=== PATIENT | male | born 1990 | race Caucasian/White ===

== ENCOUNTER 2016-11-05 13:34 | Inpatient (IN) | payer MEDICARE ==
[~2016-11-05] VITALS: Ht 172.7 cm; Wt 68.7 kg
[~2016-11-05 13:34] MED LIST: ACET325T14 PO; ALBU1.25 NEB; ALBU2.5V NEB; ALBU2.5V NPPB; AZIT250T89 PO; BISA10SU2 PR; BISA10SU65 PR; BUPR-173 PO; BUPR100T8 PO; DEXT1TAB7 PO; DEXT50VI2 IVPush; DIPH25CA61 PO; DIPH50VI4 IVPush; DORN1SOL INH; GABA300C10 PO; GABA600T2 PO; GUAI200T3 PO; GUAI400T26 PO; Gabapentin PO; HUMALOG; HYDR-3241 PO; HYDR2VIA2 IV; INSU100C SQ-INSULIN; INSU100I28 SQ-INSULIN; INSU100V5 SQ-INSULIN; INSU100V8 SQ; KETO30SY IM; LIPA1CAP17 PO; LORA0.5T PO; MERO1VIA15 IM/IV; MULT-512 PO; MULT-6 PO; OMEP-110 PO; OXYC1TAB8 PO; PHYT5TAB2 PO; PIPE4.5V6 IVPB; POLY17PO5 PO; TEMA15CA6 PO; [UNRECOGNIZED DRUG - CODE] IVPB
[2016-11-05 18:15] VITALS: BP 151/96
[2016-11-05] MEDS ORDERED: DIPHENHYDRAMINE 50 MG/ML, 1ML ONE (21:29)
[2016-11-05] MEDS ORDERED: HYDROmorphone 1 MG/ML, 1ML ONE (21:29)
[2016-11-05] MEDS: INSULIN REGULAR 100 UNITS/ML, 3ML VIAL SQ-INSULIN SCH (21:30)
[2016-11-05] MEDS: HYDROmorphone 2 MG/ML, 1ML IV PRN ×2 (21:49→22:07)
[2016-11-05] MEDS: DIPHENHYDRAMINE 50 MG/ML, 1ML IVPush PRN (21:49)
[2016-11-05] MEDS: GABAPENTIN 300 MG CAPSULE PO SCH (22:05)
[2016-11-05] MEDS: GUAIFENESIN 200 MG TABLET PO SCH (22:05)
[2016-11-05] MEDS: PIPERACILLIN/TAZO/PMX 4.5GM 100 ML IV SCH (22:54)
[2016-11-05] MEDS: CIPROFLOXACIN/PMX 400MG/200ML 200 ML IV SCH (23:45)
[2016-11-05] MEDS: ALBUTEROL SULFATE 2.5 MG/3 ML NPPB SCH (23:45)
[2016-11-06] MEDS ORDERED: ALBUTEROL/IPRATROPIUM 2.5MG/0.5MG, 3 ML NPPB PRN (01:00)
[2016-11-06 03:21] VITALS: BP 150/84
[2016-11-06] MEDS: ALBUTEROL SULFATE 2.5 MG/3 ML NPPB SCH ×5 (03:29→20:50)
[2016-11-06] MEDS: DORNASE ALFA 1 MG/ML INH SCH ×4 (03:29→21:09)
[2016-11-06] MEDS: GABAPENTIN 300 MG CAPSULE PO SCH ×4 (06:00→20:14)
[2016-11-06] MEDS: GUAIFENESIN 200 MG TABLET PO SCH ×4 (06:00→20:14)
[2016-11-06 06:19] LABS: BLOOD UREA NITROGEN 17 mg/dL (7-18)
[2016-11-06 06:20] LABS: ASPARTATE AMINO TRANSFERASE 18 U/L (15-37)
[2016-11-06] MEDS: PANCRELIPASE 24,000 CAPSULE.DR PO SCH ×3 (06:40→17:32)
[2016-11-06] MEDS: PIPERACILLIN/TAZO/PMX 4.5GM 100 ML IV SCH ×3 (06:40→23:14)
[2016-11-06 06:42] VITALS: BP 138/86
[2016-11-06] MEDS: INSULIN REGULAR 100 UNITS/ML, 3ML VIAL SQ-INSULIN SCH ×4 (07:00→21:00)
[2016-11-06] MEDS ORDERED: ALBUTEROL/IPRATROPIUM 2.5MG/0.5MG, 3 ML NPPB SCH (07:00)
[2016-11-06] MEDS: DIPHENHYDRAMINE 50 MG/ML, 1ML IVPush PRN ×4 (07:23→20:00)
[2016-11-06] MEDS: HYDROmorphone 2 MG/ML, 1ML IV PRN ×4 (07:23→20:11)
[2016-11-06] MEDS: PHYTONADIONE 10 MG/ML, 1ML IM SCH ×2 (09:00→09:05)
[2016-11-06] MEDS: BUPROPION SR 100 MG TABLET PO SCH (09:05)
[2016-11-06] MEDS: PANTOPROZOLE 40MG TABLET PO SCH (09:05)
[2016-11-06] MEDS ORDERED: SODIUM CHLORIDE 0.9% 1,000 ML IV SCH (10:30)
[2016-11-06] MEDS: CIPROFLOXACIN/PMX 400MG/200ML 200 ML IV SCH (11:13)
[2016-11-06] MEDS ORDERED: DIPHENHYDRAMINE 50 MG/ML, 1ML ONE (11:44)
[2016-11-06 12:58] VITALS: BP 131/85
[2016-11-06] MEDS ORDERED: GADOBUTROL 7.5 MMOL/7.5 ML PFS ONE (16:27)
[2016-11-06 18:32] VITALS: BP 151/93
[2016-11-06] MEDS: INSULIN DETEMIR 100 UNITS/ML, PEN SQ-INSULIN SCH (20:23)
[2016-11-06] MEDS: TOBRAMYCIN NPPB SCH (21:00)
[2016-11-06] MEDS: SODIUM CHLORIDE NPPB SCH (21:00)
[2016-11-07] MEDS: CIPROFLOXACIN/PMX 400MG/200ML 200 ML IV SCH ×2 (00:09→11:34)
[2016-11-07] MEDS: DIPHENHYDRAMINE 50 MG/ML, 1ML IVPush PRN ×6 (00:09→21:42)
[2016-11-07] MEDS: HYDROmorphone 2 MG/ML, 1ML IV PRN ×6 (00:40→21:58)
[2016-11-07 01:30] VITALS: BP 147/69
[2016-11-07] MEDS: GABAPENTIN 300 MG CAPSULE PO SCH ×4 (06:38→21:42)
[2016-11-07] MEDS: GUAIFENESIN 200 MG TABLET PO SCH ×4 (06:39→21:42)
[2016-11-07] MEDS: PIPERACILLIN/TAZO/PMX 4.5GM 100 ML IV SCH ×3 (06:40→23:19)
[2016-11-07 06:52] LABS: BLOOD UREA NITROGEN 18 mg/dL (7-18)
[2016-11-07 06:59] VITALS: BP 128/76
[2016-11-07] MEDS: PANCRELIPASE 24,000 CAPSULE.DR PO SCH ×3 (07:00→16:06)
[2016-11-07] MEDS: INSULIN REGULAR 100 UNITS/ML, 3ML VIAL SQ-INSULIN SCH ×4 (07:30→21:00)
[2016-11-07] MEDS: ALBUTEROL SULFATE 2.5 MG/3 ML NPPB SCH ×4 (08:30→20:50)
[2016-11-07] MEDS: SODIUM CHLORIDE NPPB SCH ×2 (08:42→20:55)
[2016-11-07] MEDS: TOBRAMYCIN NPPB SCH ×2 (08:42→20:55)
[2016-11-07] MEDS: DORNASE ALFA 1 MG/ML INH SCH ×2 (08:42→21:00)
[2016-11-07] MEDS: PANTOPROZOLE 40MG TABLET PO SCH (09:16)
[2016-11-07] MEDS: PHYTONADIONE 10 MG/ML, 1ML IM SCH (09:16)
[2016-11-07] MEDS: BUPROPION SR 100 MG TABLET PO SCH (09:16)
[2016-11-07] MEDS: INSULIN DETEMIR 100 UNITS/ML, PEN SQ-INSULIN SCH (09:18)
[2016-11-07 13:16] VITALS: BP 129/94
[2016-11-07 18:40] VITALS: BP 129/77
[2016-11-08 02:03] VITALS: BP 142/92
[2016-11-08] MEDS: HYDROmorphone 2 MG/ML, 1ML IV PRN ×6 (02:12→22:43)
[2016-11-08] MEDS: GUAIFENESIN 200 MG TABLET PO SCH ×4 (05:45→22:25)
[2016-11-08] MEDS: DIPHENHYDRAMINE 50 MG/ML, 1ML IVPush PRN ×5 (05:45→22:22)
[2016-11-08] MEDS: GABAPENTIN 300 MG CAPSULE PO SCH ×4 (05:45→22:25)
[2016-11-08] MEDS: PIPERACILLIN/TAZO/PMX 4.5GM 100 ML IV SCH ×3 (06:40→22:39)
[2016-11-08] MEDS: PANCRELIPASE 24,000 CAPSULE.DR PO SCH ×3 (06:41→17:13)
[2016-11-08] MEDS: ALBUTEROL SULFATE 2.5 MG/3 ML NPPB SCH ×4 (06:42→20:00)
[2016-11-08 07:04] VITALS: BP 131/87
[2016-11-08] MEDS: BUPROPION SR 100 MG TABLET PO SCH (08:29)
[2016-11-08] MEDS: PANTOPROZOLE 40MG TABLET PO SCH (08:29)
[2016-11-08] MEDS: INSULIN DETEMIR 100 UNITS/ML, PEN SQ-INSULIN SCH (08:30)
[2016-11-08] MEDS: INSULIN REGULAR 100 UNITS/ML, 3ML VIAL SQ-INSULIN SCH ×4 (08:30→21:00)
[2016-11-08] MEDS: PHYTONADIONE 10 MG/ML, 1ML IM SCH (08:31)
[2016-11-08] MEDS: SODIUM CHLORIDE NPPB SCH ×2 (09:00→20:40)
[2016-11-08] MEDS: DORNASE ALFA 1 MG/ML INH SCH ×2 (09:00→20:40)
[2016-11-08] MEDS: TOBRAMYCIN NPPB SCH ×2 (09:00→20:40)
[2016-11-08] MEDS: CIPROFLOXACIN/PMX 400MG/200ML 200 ML IV SCH ×2 (11:41)
[2016-11-08 15:09] VITALS: BP 122/87
[2016-11-08 21:12] VITALS: BP 123/82
[2016-11-09] MEDS: CIPROFLOXACIN/PMX 400MG/200ML 200 ML IV SCH ×2 (00:04→11:47)
[2016-11-09 02:14] VITALS: BP 150/99
[2016-11-09] MEDS: DIPHENHYDRAMINE 50 MG/ML, 1ML IVPush PRN ×5 (02:22→20:38)
[2016-11-09] MEDS: HYDROmorphone 2 MG/ML, 1ML IV PRN ×6 (03:04→20:38)
[2016-11-09 05:20] LABS: BLOOD UREA NITROGEN 16 mg/dL (7-18)
[2016-11-09] MEDS: GUAIFENESIN 200 MG TABLET PO SCH ×4 (06:05→20:38)
[2016-11-09] MEDS: GABAPENTIN 300 MG CAPSULE PO SCH ×4 (06:05→20:38)
[2016-11-09] MEDS: ALBUTEROL SULFATE 2.5 MG/3 ML NPPB SCH ×4 (06:32→21:15)
[2016-11-09] MEDS: PIPERACILLIN/TAZO/PMX 4.5GM 100 ML IV SCH ×3 (06:41→23:20)
[2016-11-09] MEDS: PANCRELIPASE 24,000 CAPSULE.DR PO SCH ×3 (06:42→15:42)
[2016-11-09] MEDS: INSULIN REGULAR 100 UNITS/ML, 3ML VIAL SQ-INSULIN SCH ×4 (07:00→20:52)
[2016-11-09 07:27] VITALS: BP 130/92
[2016-11-09] MEDS: PHYTONADIONE 10 MG/ML, 1ML IM SCH (08:47)
[2016-11-09] MEDS: PANTOPROZOLE 40MG TABLET PO SCH (08:47)
[2016-11-09] MEDS: BUPROPION SR 100 MG TABLET PO SCH (08:47)
[2016-11-09] MEDS: INSULIN DETEMIR 100 UNITS/ML, PEN SQ-INSULIN SCH (08:48)
[2016-11-09] MEDS: DORNASE ALFA 1 MG/ML INH SCH ×2 (09:00→21:00)
[2016-11-09] MEDS: SODIUM CHLORIDE NPPB SCH ×2 (09:00→21:00)
[2016-11-09] MEDS: TOBRAMYCIN NPPB SCH ×2 (09:00→21:00)
[2016-11-09 13:28] VITALS: BP 148/98
[2016-11-09 19:39] VITALS: BP 133/87
[2016-11-10] MEDS: CIPROFLOXACIN/PMX 400MG/200ML 200 ML IV SCH ×2 (00:27→11:59)
[2016-11-10] MEDS: HYDROmorphone 2 MG/ML, 1ML IV PRN ×5 (00:35→20:44)
[2016-11-10] MEDS: DIPHENHYDRAMINE 50 MG/ML, 1ML IVPush PRN ×5 (00:35→20:44)
[2016-11-10 01:15] VITALS: BP 131/94
[2016-11-10] MEDS: LORazepam 1MG TABLET PO PRN ×2 (01:26→23:59)
[2016-11-10] MEDS: GUAIFENESIN 200 MG TABLET PO SCH ×4 (06:56→21:06)
[2016-11-10] MEDS: GABAPENTIN 300 MG CAPSULE PO SCH ×4 (06:56→21:06)
[2016-11-10] MEDS: ALBUTEROL SULFATE 2.5 MG/3 ML NPPB SCH ×4 (07:20→21:00)
[2016-11-10] MEDS: SODIUM CHLORIDE NPPB SCH ×2 (07:31→21:00)
[2016-11-10] MEDS: TOBRAMYCIN NPPB SCH ×2 (07:31→21:00)
[2016-11-10] MEDS: DORNASE ALFA 1 MG/ML INH SCH ×2 (07:49→21:00)
[2016-11-10 08:00] VITALS: BP 137/92
[2016-11-10] MEDS: PANTOPROZOLE 40MG TABLET PO SCH (08:16)
[2016-11-10] MEDS: PIPERACILLIN/TAZO/PMX 4.5GM 100 ML IV SCH ×3 (08:16→22:58)
[2016-11-10] MEDS: BUPROPION SR 100 MG TABLET PO SCH (08:17)
[2016-11-10] MEDS: INSULIN REGULAR 100 UNITS/ML, 3ML VIAL SQ-INSULIN SCH ×4 (08:19→21:18)
[2016-11-10] MEDS: INSULIN DETEMIR 100 UNITS/ML, PEN SQ-INSULIN SCH (08:19)
[2016-11-10] MEDS: PHYTONADIONE 10 MG/ML, 1ML IM SCH (08:20)
[2016-11-10] MEDS: PANCRELIPASE 24,000 CAPSULE.DR PO SCH ×3 (08:22→16:00)
[2016-11-10 13:38] VITALS: BP 130/95
[2016-11-10] MEDS: HYDROcodone/APAP 10/325 MG TABLET PO PRN (13:45)
[2016-11-10 19:57] VITALS: BP 123/67
[2016-11-10 21:51] VITALS: BP 138/84
[2016-11-11] MEDS: DIPHENHYDRAMINE 50 MG/ML, 1ML IVPush PRN ×6 (00:54→23:16)
[2016-11-11] MEDS: HYDROmorphone 2 MG/ML, 1ML IV PRN ×6 (00:54→23:10)
[2016-11-11 02:52] VITALS: BP 133/94
[2016-11-11] MEDS: PANCRELIPASE 24,000 CAPSULE.DR PO SCH ×3 (07:00→16:00)
[2016-11-11] MEDS: GUAIFENESIN 200 MG TABLET PO SCH ×4 (07:10→21:04)
[2016-11-11] MEDS: PIPERACILLIN/TAZO/PMX 4.5GM 100 ML IV SCH ×3 (07:11→23:17)
[2016-11-11] MEDS: GABAPENTIN 300 MG CAPSULE PO SCH ×4 (07:11→21:03)
[2016-11-11] MEDS: ALBUTEROL SULFATE 2.5 MG/3 ML NPPB SCH ×4 (07:30→22:55)
[2016-11-11 08:13] VITALS: BP 132/90
[2016-11-11] MEDS: PANTOPROZOLE 40MG TABLET PO SCH (08:20)
[2016-11-11] MEDS: PHYTONADIONE 10 MG/ML, 1ML IM SCH (08:21)
[2016-11-11] MEDS: BUPROPION SR 100 MG TABLET PO SCH (08:21)
[2016-11-11] MEDS: INSULIN DETEMIR 100 UNITS/ML, PEN SQ-INSULIN SCH (08:22)
[2016-11-11] MEDS: INSULIN REGULAR 100 UNITS/ML, 3ML VIAL SQ-INSULIN SCH ×4 (08:22→21:17)
[2016-11-11] MEDS: TOBRAMYCIN NPPB SCH ×2 (09:16→23:05)
[2016-11-11] MEDS: SODIUM CHLORIDE NPPB SCH ×2 (09:16→23:05)
[2016-11-11] MEDS: HYDROcodone/APAP 10/325 MG TABLET PO PRN ×2 (09:40→16:56)
[2016-11-11] MEDS: CIPROFLOXACIN/PMX 400MG/200ML 200 ML IV SCH ×2 (11:17)
[2016-11-11] MEDS: DORNASE ALFA 1 MG/ML INH SCH ×2 (12:23→23:20)
[2016-11-11 15:06] VITALS: BP 145/95
[2016-11-11] MEDS ORDERED: DOCUSATE 50 MG/5 ML, 10ML UDC PO PRN (19:30)
[2016-11-11 19:49] VITALS: BP 130/87
[2016-11-12] MEDS: CIPROFLOXACIN/PMX 400MG/200ML 200 ML IV SCH ×2 (00:35→12:27)
[2016-11-12] MEDS: LORazepam 1MG TABLET PO PRN ×2 (00:36→17:00)
[2016-11-12 02:19] VITALS: BP 127/86
[2016-11-12] MEDS: DIPHENHYDRAMINE 50 MG/ML, 1ML IVPush PRN ×5 (03:14→20:01)
[2016-11-12] MEDS: HYDROmorphone 2 MG/ML, 1ML IV PRN ×5 (03:15→20:01)
[2016-11-12] MEDS: GABAPENTIN 300 MG CAPSULE PO SCH ×4 (06:00→21:21)
[2016-11-12] MEDS: GUAIFENESIN 200 MG TABLET PO SCH ×4 (06:00→21:21)
[2016-11-12 06:13] LABS: ASPARTATE AMINO TRANSFERASE 14 U/L (15-37); BLOOD UREA NITROGEN 22 mg/dL (7-18)
[2016-11-12] MEDS: INSULIN REGULAR 100 UNITS/ML, 3ML VIAL SQ-INSULIN SCH ×4 (07:00→21:21)
[2016-11-12 07:02] VITALS: BP 127/64
[2016-11-12] MEDS: ALBUTEROL SULFATE 2.5 MG/3 ML NPPB SCH ×4 (07:40→22:00)
[2016-11-12] MEDS: BUPROPION SR 100 MG TABLET PO SCH (08:08)
[2016-11-12] MEDS: PIPERACILLIN/TAZO/PMX 4.5GM 100 ML IV SCH ×3 (08:09→22:58)
[2016-11-12] MEDS: PANCRELIPASE 24,000 CAPSULE.DR PO SCH ×3 (08:09→15:41)
[2016-11-12] MEDS: PHYTONADIONE 10 MG/ML, 1ML IM SCH (08:10)
[2016-11-12] MEDS: PANTOPROZOLE 40MG TABLET PO SCH (08:14)
[2016-11-12] MEDS: INSULIN DETEMIR 100 UNITS/ML, PEN SQ-INSULIN SCH (08:25)
[2016-11-12] MEDS: LACTATED RINGERS 1,000 ML IV SCH ×2 (08:26→21:21)
[2016-11-12] MEDS: HYDROcodone/APAP 10/325 MG TABLET PO PRN (10:42)
[2016-11-12] MEDS: POLYETHYLENE GLYCOL 17 GM PACKET PO SCH (10:42)
[2016-11-12] MEDS: SODIUM CHLORIDE NPPB SCH ×2 (10:50→22:10)
[2016-11-12] MEDS: TOBRAMYCIN NPPB SCH ×2 (10:50→22:10)
[2016-11-12] MEDS: DORNASE ALFA 1 MG/ML INH SCH ×2 (12:10→23:30)
[2016-11-12 14:35] VITALS: BP 148/73
[2016-11-12 15:00] VITALS: BP 150/100
[2016-11-12 17:03] VITALS: BP 128/91
[2016-11-12 20:04] VITALS: BP 148/91
[2016-11-13] MEDS: HYDROmorphone 2 MG/ML, 1ML IV PRN ×6 (00:09→20:25)
[2016-11-13] MEDS: CIPROFLOXACIN/PMX 400MG/200ML 200 ML IV SCH ×2 (00:09→12:53)
[2016-11-13] MEDS: DIPHENHYDRAMINE 50 MG/ML, 1ML IVPush PRN ×5 (00:09→20:26)
[2016-11-13 02:30] VITALS: BP 142/95
[2016-11-13] MEDS: GUAIFENESIN 200 MG TABLET PO SCH ×4 (05:52→20:25)
[2016-11-13] MEDS: GABAPENTIN 300 MG CAPSULE PO SCH ×4 (05:52→20:25)
[2016-11-13 06:29] LABS: BLOOD UREA NITROGEN 19 mg/dL (7-18)
[2016-11-13] MEDS: PIPERACILLIN/TAZO/PMX 4.5GM 100 ML IV SCH ×3 (06:46→22:54)
[2016-11-13] MEDS: PANCRELIPASE 24,000 CAPSULE.DR PO SCH ×3 (06:47→16:00)
[2016-11-13 07:12] VITALS: BP 128/81
[2016-11-13] MEDS: PANTOPROZOLE 40MG TABLET PO SCH (07:30)
[2016-11-13] MEDS: ALBUTEROL SULFATE 2.5 MG/3 ML NPPB SCH ×4 (08:05→22:00)
[2016-11-13] MEDS: TOBRAMYCIN NPPB SCH ×2 (08:15→22:10)
[2016-11-13] MEDS: SODIUM CHLORIDE NPPB SCH ×2 (08:15→22:10)
[2016-11-13] MEDS: INSULIN REGULAR 100 UNITS/ML, 3ML VIAL SQ-INSULIN SCH ×5 (08:47→20:33)
[2016-11-13] MEDS: BUPROPION SR 100 MG TABLET PO SCH (09:00)
[2016-11-13] MEDS ORDERED: HYDROmorphone 2 MG/ML, 1ML IVPush PRN (09:00)
[2016-11-13] MEDS: PHYTONADIONE 10 MG/ML, 1ML IM SCH (09:00)
[2016-11-13] MEDS ORDERED: DIPHENHYDRAMINE 50 MG/ML, 1ML IVPush ONE (09:30)
[2016-11-13] MEDS ORDERED: methylPREDNISolone SOD SUCC 125 MG/2 ML IVPush ONE ×2 (09:30→10:00)
[2016-11-13] MEDS ORDERED: methylPREDNISolone SOD SUCC 125 MG/2 ML IVPush SCH (10:00)
[2016-11-13] MEDS ORDERED: GADOBUTROL 7.5 MMOL/7.5 ML PFS ONE (10:37)
[2016-11-13] MEDS ORDERED: OXYMETAZOLINE NASAL SPRAY 0.05%, 15ML ONE (10:52)
[2016-11-13] MEDS ORDERED: BACITRACIN 50,000 UNIT ONE (10:53)
[2016-11-13] MEDS ORDERED: FLUORESCEIN OPHTHALMIC 1 MG STRIP ONE (10:53)
[2016-11-13] MEDS ORDERED: LIDOCAINE/PF 1%-EPI 1:200K, 30ML ONE ×2 (10:53)
[2016-11-13] MEDS ORDERED: EPINEPHRINE TOPICAL SOLN 1 MG/ML, 30ML ONE (10:53)
[2016-11-13] MEDS ORDERED: BACITRACIN OINT 500U/GM, 15 GM ONE (10:53)
[2016-11-13] MEDS: DORNASE ALFA 1 MG/ML INH SCH ×2 (10:55→20:30)
[2016-11-13] MEDS: ALBUTEROL SULFATE 2.5 MG/3 ML NPPB PRN (12:35)
[2016-11-13] MEDS: POLYETHYLENE GLYCOL 17 GM PACKET PO SCH (12:57)
[2016-11-13] MEDS: INSULIN DETEMIR 100 UNITS/ML, PEN SQ-INSULIN SCH (13:09)
[2016-11-13 14:52] VITALS: BP 121/73
[2016-11-13] MEDS: LACTATED RINGERS 1,000 ML IV SCH (15:30)
[2016-11-13] MEDS: LORazepam 1MG TABLET PO PRN (15:30)
[2016-11-13 20:52] VITALS: BP 135/80
[2016-11-14] MEDS: CIPROFLOXACIN/PMX 400MG/200ML 200 ML IV SCH ×2 (00:13→12:16)
[2016-11-14] MEDS: HYDROmorphone 2 MG/ML, 1ML IV PRN ×6 (00:14→20:22)
[2016-11-14] MEDS: DIPHENHYDRAMINE 50 MG/ML, 1ML IVPush PRN ×6 (00:14→20:22)
[2016-11-14 02:15] VITALS: BP 148/84
[2016-11-14] MEDS: LACTATED RINGERS 1,000 ML IV SCH (02:25)
[2016-11-14] MEDS: LORazepam 1MG TABLET PO PRN ×2 (02:25→21:57)
[2016-11-14] MEDS: GABAPENTIN 300 MG CAPSULE PO SCH ×4 (05:22→21:25)
[2016-11-14] MEDS: GUAIFENESIN 200 MG TABLET PO SCH ×4 (05:22→21:25)
[2016-11-14 06:42] LABS: BLOOD UREA NITROGEN 32 mg/dL (7-18)
[2016-11-14] MEDS: PIPERACILLIN/TAZO/PMX 4.5GM 100 ML IV SCH ×3 (06:47→23:07)
[2016-11-14] MEDS: PANCRELIPASE 24,000 CAPSULE.DR PO SCH ×3 (06:48→16:16)
[2016-11-14] MEDS: PANTOPROZOLE 40MG TABLET PO SCH (07:31)
[2016-11-14] MEDS: ALBUTEROL SULFATE 2.5 MG/3 ML NPPB SCH ×4 (07:43→20:47)
[2016-11-14] MEDS: TOBRAMYCIN NPPB SCH ×2 (07:57→20:56)
[2016-11-14] MEDS: SODIUM CHLORIDE NPPB SCH ×2 (07:57→20:56)
[2016-11-14] MEDS: DORNASE ALFA 1 MG/ML INH SCH ×2 (08:10→20:57)
[2016-11-14] MEDS: PHYTONADIONE 10 MG/ML, 1ML IM SCH (09:00)
[2016-11-14 09:25] VITALS: BP 123/75
[2016-11-14] MEDS: INSULIN DETEMIR 100 UNITS/ML, PEN SQ-INSULIN SCH (10:11)
[2016-11-14] MEDS: POLYETHYLENE GLYCOL 17 GM PACKET PO SCH (10:11)
[2016-11-14] MEDS: INSULIN REGULAR 100 UNITS/ML, 3ML VIAL SQ-INSULIN SCH ×4 (10:11→21:00)
[2016-11-14] MEDS: BUPROPION SR 100 MG TABLET PO SCH (10:12)
[2016-11-14] MEDS: HYDROcodone/APAP 10/325 MG TABLET PO PRN ×3 (10:22→21:52)
[2016-11-14 14:38] VITALS: BP 137/80
[2016-11-14] MEDS: SODIUM CHLORIDE 0.9% 1,000 ML IV SCH (15:49)
[2016-11-14 20:28] VITALS: BP 149/90
[2016-11-15] MEDS: DIPHENHYDRAMINE 50 MG/ML, 1ML IVPush PRN ×5 (00:41→20:08)
[2016-11-15] MEDS: HYDROmorphone 2 MG/ML, 1ML IV PRN ×7 (00:41→23:13)
[2016-11-15] MEDS: CIPROFLOXACIN/PMX 400MG/200ML 200 ML IV SCH ×3 (00:41→23:31)
[2016-11-15 02:14] VITALS: BP 116/72
[2016-11-15] MEDS: HYDROcodone/APAP 10/325 MG TABLET PO PRN ×2 (03:55→16:11)
[2016-11-15] MEDS: SODIUM CHLORIDE 0.9% 1,000 ML IV SCH ×2 (04:18→15:04)
[2016-11-15 04:40] LABS: BLOOD UREA NITROGEN 25 mg/dL (7-18)
[2016-11-15] MEDS: PIPERACILLIN/TAZO/PMX 4.5GM 100 ML IV SCH ×3 (06:30→22:54)
[2016-11-15] MEDS: GUAIFENESIN 200 MG TABLET PO SCH ×4 (06:30→20:09)
[2016-11-15] MEDS: PANCRELIPASE 24,000 CAPSULE.DR PO SCH ×3 (06:30→16:00)
[2016-11-15] MEDS: GABAPENTIN 300 MG CAPSULE PO SCH ×4 (06:30→20:09)
[2016-11-15] MEDS: PANTOPROZOLE 40MG TABLET PO SCH (07:43)
[2016-11-15] MEDS: PHYTONADIONE 10 MG/ML, 1ML IM SCH (07:43)
[2016-11-15] MEDS: BUPROPION SR 100 MG TABLET PO SCH (07:43)
[2016-11-15] MEDS: POLYETHYLENE GLYCOL 17 GM PACKET PO SCH (07:43)
[2016-11-15] MEDS: INSULIN REGULAR 100 UNITS/ML, 3ML VIAL SQ-INSULIN SCH ×4 (07:44→20:21)
[2016-11-15] MEDS: INSULIN DETEMIR 100 UNITS/ML, PEN SQ-INSULIN SCH (07:44)
[2016-11-15] MEDS: ALBUTEROL SULFATE 2.5 MG/3 ML NPPB SCH ×4 (07:52→20:10)
[2016-11-15] MEDS: TOBRAMYCIN NPPB SCH ×2 (08:06→20:39)
[2016-11-15] MEDS: SODIUM CHLORIDE NPPB SCH ×2 (08:06→20:39)
[2016-11-15] MEDS: DORNASE ALFA 1 MG/ML INH SCH ×2 (08:17→20:32)
[2016-11-15] MEDS: LORazepam 1MG TABLET PO PRN (10:31)
[2016-11-15 10:49] VITALS: BP 147/97
[2016-11-15 13:05] VITALS: BP_SYST 128; BP_SYST 133; BP_DIAS 74; BP_DIAS 99
[2016-11-15 19:55] VITALS: BP 168/102
[2016-11-16] MEDS: DIPHENHYDRAMINE 50 MG/ML, 1ML IVPush PRN ×5 (00:12→21:16)
[2016-11-16] MEDS: SODIUM CHLORIDE 0.9% 1,000 ML IV SCH ×2 (00:13→10:57)
[2016-11-16] MEDS: LORazepam 1MG TABLET PO PRN ×2 (00:19→10:44)
[2016-11-16] MEDS: HYDROmorphone 2 MG/ML, 1ML IV PRN ×7 (02:18→21:16)
[2016-11-16 02:20] VITALS: BP 165/103
[2016-11-16] MEDS: GABAPENTIN 300 MG CAPSULE PO SCH ×4 (05:14→21:23)
[2016-11-16] MEDS: GUAIFENESIN 200 MG TABLET PO SCH ×4 (05:14→21:24)
[2016-11-16] MEDS: PIPERACILLIN/TAZO/PMX 4.5GM 100 ML IV SCH ×3 (05:18→22:48)
[2016-11-16 06:05] LABS: BLOOD UREA NITROGEN 26 mg/dL (7-18)
[2016-11-16] MEDS: PANCRELIPASE 24,000 CAPSULE.DR PO SCH ×3 (06:31→16:18)
[2016-11-16] MEDS: ALBUTEROL SULFATE 2.5 MG/3 ML NPPB SCH ×4 (06:35→20:00)
[2016-11-16] MEDS: SODIUM CHLORIDE NPPB SCH ×2 (06:57→20:51)
[2016-11-16] MEDS: TOBRAMYCIN NPPB SCH ×2 (06:57→20:51)
[2016-11-16] MEDS: DORNASE ALFA 1 MG/ML INH SCH ×2 (07:00→20:41)
[2016-11-16 07:11] VITALS: BP 135/91
[2016-11-16] MEDS: PANTOPROZOLE 40MG TABLET PO SCH (07:45)
[2016-11-16] MEDS: POLYETHYLENE GLYCOL 17 GM PACKET PO SCH (07:46)
[2016-11-16] MEDS: BUPROPION SR 100 MG TABLET PO SCH (07:46)
[2016-11-16] MEDS: PHYTONADIONE 10 MG/ML, 1ML IM SCH (07:46)
[2016-11-16] MEDS: INSULIN REGULAR 100 UNITS/ML, 3ML VIAL SQ-INSULIN SCH ×4 (07:47→22:45)
[2016-11-16] MEDS: INSULIN DETEMIR 100 UNITS/ML, PEN SQ-INSULIN SCH (07:48)
[2016-11-16] MEDS: CIPROFLOXACIN/PMX 400MG/200ML 200 ML IV SCH (11:29)
[2016-11-16 14:05] VITALS: BP 136/94
[2016-11-16 18:37] VITALS: BP 145/92
[2016-11-16] MEDS: HYDROcodone/APAP 10/325 MG TABLET PO PRN (19:59)
[2016-11-17] MEDS: SODIUM CHLORIDE 0.9% 1,000 ML IV SCH ×3 (00:08→23:59)
[2016-11-17] MEDS: CIPROFLOXACIN/PMX 400MG/200ML 200 ML IV SCH ×3 (00:08→23:53)
[2016-11-17] MEDS: HYDROmorphone 2 MG/ML, 1ML IV PRN ×7 (00:09→22:33)
[2016-11-17] MEDS: DIPHENHYDRAMINE 50 MG/ML, 1ML IVPush PRN ×5 (00:09→19:23)
[2016-11-17] MEDS: LORazepam 1MG TABLET PO PRN ×3 (00:53→23:53)
[2016-11-17 01:32] VITALS: BP 137/91
[2016-11-17] MEDS: HYDROcodone/APAP 10/325 MG TABLET PO PRN ×5 (04:54→21:57)
[2016-11-17 05:32] LABS: BLOOD UREA NITROGEN 25 mg/dL (7-18)
[2016-11-17] MEDS: GABAPENTIN 300 MG CAPSULE PO SCH ×4 (06:21→20:34)
[2016-11-17] MEDS: GUAIFENESIN 200 MG TABLET PO SCH ×4 (06:21→20:34)
[2016-11-17] MEDS: PANCRELIPASE 24,000 CAPSULE.DR PO SCH ×3 (06:21→16:34)
[2016-11-17] MEDS: PIPERACILLIN/TAZO/PMX 4.5GM 100 ML IV SCH ×3 (06:22→23:03)
[2016-11-17] MEDS: ALBUTEROL SULFATE 2.5 MG/3 ML NPPB SCH ×4 (07:00→20:00)
[2016-11-17 08:00] VITALS: BP 150/96
[2016-11-17] MEDS: PANTOPROZOLE 40MG TABLET PO SCH (08:03)
[2016-11-17] MEDS: INSULIN REGULAR 100 UNITS/ML, 3ML VIAL SQ-INSULIN SCH ×4 (08:03→20:40)
[2016-11-17] MEDS: TOBRAMYCIN NPPB SCH ×2 (09:00→21:00)
[2016-11-17] MEDS: DORNASE ALFA 1 MG/ML INH SCH ×2 (09:00→21:00)
[2016-11-17] MEDS: SODIUM CHLORIDE NPPB SCH ×2 (09:00→21:00)
[2016-11-17] MEDS: POLYETHYLENE GLYCOL 17 GM PACKET PO SCH (09:37)
[2016-11-17] MEDS: BUPROPION SR 100 MG TABLET PO SCH (09:37)
[2016-11-17] MEDS: PHYTONADIONE 10 MG/ML, 1ML IM SCH (09:37)
[2016-11-17] MEDS: INSULIN DETEMIR 100 UNITS/ML, PEN SQ-INSULIN SCH (09:38)
[2016-11-17 11:25] LABS: PATH.CAST-FLAG NOT PRESENT; SPERM-FLAG NOT PRESENT; SRC-FLAG NOT PRESENT; XTAL-FLAG NOT PRESENT; YLC-FLAG NOT PRESENT
[2016-11-17 14:07] VITALS: BP 133/85
[2016-11-17 20:19] VITALS: BP 139/108
[2016-11-18 01:24] VITALS: BP 151/96
[2016-11-18] MEDS: HYDROmorphone 2 MG/ML, 1ML IV PRN ×7 (01:30→21:05)
[2016-11-18] MEDS: DIPHENHYDRAMINE 50 MG/ML, 1ML IVPush PRN ×4 (01:30→21:05)
[2016-11-18 05:47] LABS: BLOOD UREA NITROGEN 23 mg/dL (7-18)
[2016-11-18] MEDS: PIPERACILLIN/TAZO/PMX 4.5GM 100 ML IV SCH ×3 (06:27→23:10)
[2016-11-18] MEDS: GABAPENTIN 300 MG CAPSULE PO SCH ×4 (06:27→21:36)
[2016-11-18] MEDS: GUAIFENESIN 200 MG TABLET PO SCH ×4 (06:27→21:36)
[2016-11-18] MEDS: PANCRELIPASE 24,000 CAPSULE.DR PO SCH ×3 (06:27→16:33)
[2016-11-18] MEDS: ALBUTEROL SULFATE 2.5 MG/3 ML NPPB SCH ×4 (08:10→20:40)
[2016-11-18 08:30] VITALS: BP 152/100
[2016-11-18] MEDS: INSULIN REGULAR 100 UNITS/ML, 3ML VIAL SQ-INSULIN SCH ×4 (08:50→21:40)
[2016-11-18] MEDS: PHYTONADIONE 10 MG/ML, 1ML IM SCH (09:00)
[2016-11-18] MEDS: POLYETHYLENE GLYCOL 17 GM PACKET PO SCH (09:00)
[2016-11-18] MEDS: BUPROPION SR 100 MG TABLET PO SCH (09:00)
[2016-11-18] MEDS: PANTOPROZOLE 40MG TABLET PO SCH (09:00)
[2016-11-18] MEDS: INSULIN DETEMIR 100 UNITS/ML, PEN SQ-INSULIN SCH (09:01)
[2016-11-18] MEDS: DORNASE ALFA 1 MG/ML INH SCH ×2 (09:35→21:10)
[2016-11-18] MEDS: SODIUM CHLORIDE NPPB SCH ×2 (09:45→20:50)
[2016-11-18] MEDS: TOBRAMYCIN NPPB SCH ×2 (09:45→20:50)
[2016-11-18] MEDS: HYDROcodone/APAP 10/325 MG TABLET PO PRN ×2 (10:33→20:23)
[2016-11-18] MEDS: CIPROFLOXACIN/PMX 400MG/200ML 200 ML IV SCH (11:20)
[2016-11-18] MEDS: SODIUM CHLORIDE 0.9% 1,000 ML IV SCH ×2 (11:52→21:37)
[2016-11-18 13:03] VITALS: BP 133/91
[2016-11-18] MEDS: LORazepam 1MG TABLET PO PRN ×2 (16:33→23:10)
[2016-11-18 20:26] VITALS: BP 150/90
[2016-11-19] MEDS: CIPROFLOXACIN/PMX 400MG/200ML 200 ML IV SCH ×2 (00:05→11:00)
[2016-11-19] MEDS: HYDROmorphone 2 MG/ML, 1ML IV PRN ×7 (00:05→21:04)
[2016-11-19 01:17] VITALS: BP 140/91
[2016-11-19] MEDS: DIPHENHYDRAMINE 50 MG/ML, 1ML IVPush PRN ×4 (03:00→21:04)
[2016-11-19 06:02] LABS: BLOOD UREA NITROGEN 19 mg/dL (7-18)
[2016-11-19 06:06] LABS: ASPARTATE AMINO TRANSFERASE 17 U/L (15-37)
[2016-11-19] MEDS: GABAPENTIN 300 MG CAPSULE PO SCH ×4 (06:09→21:04)
[2016-11-19] MEDS: PANCRELIPASE 24,000 CAPSULE.DR PO SCH ×3 (06:09→16:41)
[2016-11-19] MEDS: GUAIFENESIN 200 MG TABLET PO SCH ×4 (06:09→21:04)
[2016-11-19 06:15] LABS: C-REACTIVE PROTEIN, QUANT > 19.00 mg/dL (0.02-0.49)
[2016-11-19] MEDS: PIPERACILLIN/TAZO/PMX 4.5GM 100 ML IV SCH ×3 (06:46→22:30)
[2016-11-19] MEDS: ALBUTEROL SULFATE 2.5 MG/3 ML NPPB SCH ×4 (08:40→21:45)
[2016-11-19 08:50] VITALS: BP 137/94
[2016-11-19] MEDS: TOBRAMYCIN NPPB SCH ×2 (08:50→22:00)
[2016-11-19] MEDS: PANTOPROZOLE 40MG TABLET PO SCH (08:50)
[2016-11-19] MEDS: INSULIN REGULAR 100 UNITS/ML, 3ML VIAL SQ-INSULIN SCH ×4 (08:50→21:55)
[2016-11-19] MEDS: SODIUM CHLORIDE NPPB SCH ×2 (08:50→22:00)
[2016-11-19] MEDS: INSULIN DETEMIR 100 UNITS/ML, PEN SQ-INSULIN SCH (08:50)
[2016-11-19] MEDS: PHYTONADIONE 10 MG/ML, 1ML IM SCH (08:50)
[2016-11-19] MEDS: POLYETHYLENE GLYCOL 17 GM PACKET PO SCH (08:50)
[2016-11-19] MEDS: BUPROPION SR 100 MG TABLET PO SCH (08:50)
[2016-11-19] MEDS: DORNASE ALFA 1 MG/ML INH SCH ×2 (09:00→22:10)
[2016-11-19] MEDS: SODIUM CHLORIDE 0.9% 1,000 ML IV SCH ×2 (11:00→22:30)
[2016-11-19] MEDS: HYDROcodone/APAP 10/325 MG TABLET PO PRN (11:01)
[2016-11-19] MEDS: LORazepam 1MG TABLET PO PRN ×2 (13:38→22:30)
[2016-11-19 14:12] VITALS: BP 128/77
[2016-11-19 18:45] VITALS: BP 143/90
[2016-11-20] MEDS: CIPROFLOXACIN/PMX 400MG/200ML 200 ML IV SCH ×2 (00:01→11:31)
[2016-11-20] MEDS: HYDROmorphone 2 MG/ML, 1ML IV PRN ×7 (00:01→21:00)
[2016-11-20] MEDS: DIPHENHYDRAMINE 50 MG/ML, 1ML IVPush PRN ×3 (03:08→20:59)
[2016-11-20 03:10] VITALS: BP 151/86
[2016-11-20] MEDS: LORazepam 1MG TABLET PO PRN ×3 (05:18→22:26)
[2016-11-20] MEDS: GUAIFENESIN 200 MG TABLET PO SCH ×4 (06:13→21:00)
[2016-11-20] MEDS: GABAPENTIN 300 MG CAPSULE PO SCH ×4 (06:13→21:00)
[2016-11-20] MEDS: PIPERACILLIN/TAZO/PMX 4.5GM 100 ML IV SCH ×3 (06:54→22:29)
[2016-11-20] MEDS: PANCRELIPASE 24,000 CAPSULE.DR PO SCH ×3 (06:55→16:49)
[2016-11-20] MEDS: ALBUTEROL SULFATE 2.5 MG/3 ML NPPB SCH ×4 (07:35→20:00)
[2016-11-20] MEDS: TOBRAMYCIN NPPB SCH ×2 (07:45→21:00)
[2016-11-20] MEDS: SODIUM CHLORIDE NPPB SCH ×2 (07:45→21:00)
[2016-11-20] MEDS: DORNASE ALFA 1 MG/ML INH SCH ×2 (08:10→21:00)
[2016-11-20] MEDS: INSULIN DETEMIR 100 UNITS/ML, PEN SQ-INSULIN SCH (08:19)
[2016-11-20] MEDS: PANTOPROZOLE 40MG TABLET PO SCH (08:20)
[2016-11-20] MEDS: BUPROPION SR 100 MG TABLET PO SCH (08:20)
[2016-11-20] MEDS: POLYETHYLENE GLYCOL 17 GM PACKET PO SCH (08:20)
[2016-11-20] MEDS: INSULIN REGULAR 100 UNITS/ML, 3ML VIAL SQ-INSULIN SCH ×4 (08:20→22:29)
[2016-11-20] MEDS: PHYTONADIONE 10 MG/ML, 1ML IM SCH (08:28)
[2016-11-20 09:00] VITALS: BP 144/95
[2016-11-20] MEDS: HYDROcodone/APAP 10/325 MG TABLET PO PRN ×2 (12:29→16:49)
[2016-11-20 14:17] VITALS: BP 130/82
[2016-11-20] MEDS: SODIUM CHLORIDE 0.9% 1,000 ML IV SCH (14:39)
[2016-11-20 18:48] VITALS: BP 130/85
[2016-11-21] MEDS: HYDROmorphone 2 MG/ML, 1ML IV PRN ×7 (00:06→21:00)
[2016-11-21] MEDS: CIPROFLOXACIN/PMX 400MG/200ML 200 ML IV SCH ×2 (00:06→11:39)
[2016-11-21 01:16] VITALS: BP 139/91
[2016-11-21] MEDS: HYDROcodone/APAP 10/325 MG TABLET PO PRN ×3 (02:21→17:02)
[2016-11-21] MEDS: DIPHENHYDRAMINE 50 MG/ML, 1ML IVPush PRN ×4 (03:15→18:13)
[2016-11-21] MEDS: GABAPENTIN 300 MG CAPSULE PO SCH ×4 (06:41→21:00)
[2016-11-21] MEDS: GUAIFENESIN 200 MG TABLET PO SCH ×4 (06:41→21:00)
[2016-11-21] MEDS: PIPERACILLIN/TAZO/PMX 4.5GM 100 ML IV SCH ×3 (06:42→22:57)
[2016-11-21] MEDS: PANCRELIPASE 24,000 CAPSULE.DR PO SCH ×3 (06:42→17:02)
[2016-11-21] MEDS: SODIUM CHLORIDE 0.9% 1,000 ML IV SCH ×2 (06:42→18:15)
[2016-11-21] MEDS: TOBRAMYCIN NPPB SCH ×2 (07:00→22:06)
[2016-11-21] MEDS: ALBUTEROL SULFATE 2.5 MG/3 ML NPPB SCH ×4 (07:00→21:51)
[2016-11-21] MEDS: SODIUM CHLORIDE NPPB SCH ×2 (07:00→22:06)
[2016-11-21] MEDS: DORNASE ALFA 1 MG/ML INH SCH ×2 (07:01→21:59)
[2016-11-21 07:50] VITALS: BP 127/79
[2016-11-21] MEDS: PHYTONADIONE 10 MG/ML, 1ML IM SCH (08:46)
[2016-11-21] MEDS: INSULIN DETEMIR 100 UNITS/ML, PEN SQ-INSULIN SCH (08:46)
[2016-11-21] MEDS: PANTOPROZOLE 40MG TABLET PO SCH (08:47)
[2016-11-21] MEDS: POLYETHYLENE GLYCOL 17 GM PACKET PO SCH (08:47)
[2016-11-21] MEDS: BUPROPION SR 100 MG TABLET PO SCH (08:47)
[2016-11-21] MEDS: INSULIN REGULAR 100 UNITS/ML, 3ML VIAL SQ-INSULIN SCH ×4 (08:47→21:44)
[2016-11-21] MEDS: LORazepam 1MG TABLET PO PRN ×2 (12:12→17:01)
[2016-11-21 13:34] VITALS: BP 139/79
[2016-11-21 19:17] VITALS: BP 129/91
[2016-11-22] MEDS: HYDROmorphone 2 MG/ML, 1ML IV PRN ×5 (00:03→21:39)
[2016-11-22] MEDS: LORazepam 1MG TABLET PO PRN ×2 (00:03→23:53)
[2016-11-22] MEDS: CIPROFLOXACIN/PMX 400MG/200ML 200 ML IV SCH ×3 (00:03→23:53)
[2016-11-22] MEDS: DIPHENHYDRAMINE 50 MG/ML, 1ML IVPush PRN ×3 (00:20→21:39)
[2016-11-22 03:09] VITALS: BP 161/105
[2016-11-22] MEDS: SODIUM CHLORIDE 0.9% 1,000 ML IV SCH ×2 (05:45→23:53)
[2016-11-22] MEDS: GUAIFENESIN 200 MG TABLET PO SCH ×4 (05:48→21:43)
[2016-11-22] MEDS: GABAPENTIN 300 MG CAPSULE PO SCH ×4 (05:49→21:43)
[2016-11-22] MEDS: PANCRELIPASE 24,000 CAPSULE.DR PO SCH ×3 (05:49→16:00)
[2016-11-22] MEDS: INSULIN REGULAR 100 UNITS/ML, 3ML VIAL SQ-INSULIN SCH ×4 (05:49→22:48)
[2016-11-22] MEDS: PIPERACILLIN/TAZO/PMX 4.5GM 100 ML IV SCH ×2 (06:32→18:13)
[2016-11-22] MEDS: ALBUTEROL SULFATE 2.5 MG/3 ML NPPB SCH ×4 (07:00→20:00)
[2016-11-22 07:11] VITALS: BP 131/81
[2016-11-22] MEDS: PANTOPROZOLE 40MG TABLET PO SCH (07:30)
[2016-11-22] MEDS: DORNASE ALFA 1 MG/ML INH SCH ×2 (09:00→21:00)
[2016-11-22] MEDS: INSULIN DETEMIR 100 UNITS/ML, PEN SQ-INSULIN SCH (09:00)
[2016-11-22] MEDS: SODIUM CHLORIDE NPPB SCH ×2 (09:00→21:00)
[2016-11-22] MEDS: POLYETHYLENE GLYCOL 17 GM PACKET PO SCH (09:00)
[2016-11-22] MEDS: BUPROPION SR 100 MG TABLET PO SCH (09:00)
[2016-11-22] MEDS: TOBRAMYCIN NPPB SCH ×2 (09:00→21:00)
[2016-11-22] MEDS: PHYTONADIONE 10 MG/ML, 1ML IM SCH (09:00)
[2016-11-22] MEDS ORDERED: LIDOCAINE/PF 1%-EPI 1:200K, 30ML ONE (10:59)
[2016-11-22] MEDS ORDERED: OXYMETAZOLINE NASAL SPRAY 0.05%, 15ML ONE (10:59)
[2016-11-22] MEDS ORDERED: EPINEPHRINE TOPICAL SOLN 1 MG/ML, 30ML ONE (10:59)
[2016-11-22] MEDS ORDERED: FLUORESCEIN OPHTHALMIC 1 MG STRIP ONE (10:59)
[2016-11-22] MEDS ORDERED: BACITRACIN 50,000 UNIT ONE (11:00)
[2016-11-22] MEDS ORDERED: BACITRACIN OINT 500U/GM, 15 GM ONE (11:00)
[2016-11-22] MEDS ORDERED: LORazepam 2 MG/ML, 1ML IVPush PRN (11:30)
[2016-11-22] MEDS ORDERED: FENTANYL PF 250 MCG/5ML ONE (12:37)
[2016-11-22] MEDS ORDERED: MIDAZOLAM 1 MG/ML, 2ML ONE (12:38)
[2016-11-22] MEDS ORDERED: INSULIN SINGLE DOSE, ER SQ-INSULIN ONE ×2 (12:44→16:13)
[2016-11-22] MEDS ORDERED: HYDROmorphone 2 MG/ML, 1ML ONE ×2 (12:52→14:14)
[2016-11-22] MEDS ORDERED: GLYCOPYRROLATE 0.2MG/1ML ONE (12:56)
[2016-11-22] MEDS ORDERED: NEOSTIGMINE 1 MG/ML, 10ML ONE (12:56)
[2016-11-22] MEDS ORDERED: PROPOFOL 10 MG/ML, 20ML ONE ×2 (12:56)
[2016-11-22] MEDS ORDERED: SUCCINYLCHOLINE 20 MG/ML, 10ML ONE (12:56)
[2016-11-22] MEDS ORDERED: PHENYLEPHRINE 10 MG/ML ONE (12:56)
[2016-11-22] MEDS ORDERED: ROCURONIUM 10 MG/ML ONE ×2 (12:56)
[2016-11-22] MEDS ORDERED: PIPERACILLIN/TAZO/PMX 3.375GM 50 ML ONE (13:33)
[2016-11-22] MEDS ORDERED: ONDANSETRON 2MG/ML, 2ML IVPush PRN (14:00)
[2016-11-22] MEDS ORDERED: EPHEDRINE 50 MG/ML, 1ML IVPush PRN (14:00)
[2016-11-22] MEDS ORDERED: HYDROmorphone 1 MG/ML, 1ML IV PRN (14:00)
[2016-11-22] MEDS ORDERED: FENTANYL PF 100 MCG/2ML IV PRN (14:00)
[2016-11-22] MEDS ORDERED: ALBUTEROL SULFATE 2.5 MG/3 ML NPPB PRN (14:00)
[2016-11-22] MEDS ORDERED: HYDROcodone/APAP 7.5-325MG/15ML UDC PO PRN (14:00)
[2016-11-22] MEDS ORDERED: OXYcodone 5 MG/5 ML ORAL.SOL UDC PO PRN (14:00)
[2016-11-22] MEDS ORDERED: MIDAZOLAM 1 MG/ML, 2ML IV PRN (14:00)
[2016-11-22] MEDS ORDERED: PROMETHAZINE 25 MG/ML, 1ML IV PRN (14:00)
[2016-11-22] MEDS ORDERED: METOCLOPRAMIDE 5 MG/ML, 2ML IV PRN (14:00)
[2016-11-22] MEDS ORDERED: MEPERIDINE/PF 25MG/0.5ML IVPush PRN (14:00)
[2016-11-22] MEDS ORDERED: hydrALAzine 20 MG/ML, 1ML IV PRN (14:00)
[2016-11-22] MEDS ORDERED: KETAMINE 10 MG/ML, 20ML ONE (14:14)
[2016-11-22] MEDS ORDERED: THROMBIN 5,000 UNIT VIAL TP ONE (15:03)
[2016-11-22] MEDS: ALBUTEROL SULFATE 2.5 MG/3 ML NPPB PRN (16:12)
[2016-11-22] MEDS ORDERED: INSULIN REGULAR 100 UNITS/ML, 3ML VIAL SQ-INSULIN SCH (16:30)
[2016-11-22 19:10] VITALS: BP 135/84
[2016-11-22] MEDS: HYDROcodone/APAP 10/325 MG TABLET PO PRN (22:48)
[2016-11-23 00:21] VITALS: BP 158/94
[2016-11-23] MEDS: HYDROmorphone 2 MG/ML, 1ML IV PRN ×8 (00:34→23:02)
[2016-11-23] MEDS: PIPERACILLIN/TAZO/PMX 4.5GM 100 ML IV SCH ×3 (03:01→19:00)
[2016-11-23] MEDS: DIPHENHYDRAMINE 50 MG/ML, 1ML IVPush PRN ×3 (03:30→23:08)
[2016-11-23 04:08] VITALS: BP 138/92
[2016-11-23 05:09] LABS: BLOOD UREA NITROGEN 18 mg/dL (7-18)
[2016-11-23] MEDS: GUAIFENESIN 200 MG TABLET PO SCH ×4 (08:07→23:18)
[2016-11-23] MEDS: PANTOPROZOLE 40MG TABLET PO SCH (08:08)
[2016-11-23] MEDS: PHYTONADIONE 10 MG/ML, 1ML IM SCH (08:08)
[2016-11-23] MEDS: BUPROPION SR 100 MG TABLET PO SCH (08:08)
[2016-11-23] MEDS: HYDROcodone/APAP 10/325 MG TABLET PO PRN ×4 (08:08→21:41)
[2016-11-23] MEDS: LORazepam 1MG TABLET PO PRN (08:08)
[2016-11-23] MEDS: INSULIN REGULAR 100 UNITS/ML, 3ML VIAL SQ-INSULIN SCH ×4 (08:09→23:38)
[2016-11-23] MEDS: PANCRELIPASE 24,000 CAPSULE.DR PO SCH ×3 (08:09→16:01)
[2016-11-23] MEDS: GABAPENTIN 300 MG CAPSULE PO SCH ×4 (08:09→23:19)
[2016-11-23] MEDS: INSULIN DETEMIR 100 UNITS/ML, PEN SQ-INSULIN SCH (08:47)
[2016-11-23] MEDS ORDERED: OxyconTIN ER 15 MG TAB.ER PO SCH (09:00)
[2016-11-23] MEDS: ALBUTEROL SULFATE 2.5 MG/3 ML NPPB SCH ×4 (09:20→21:45)
[2016-11-23] MEDS: SODIUM CHLORIDE NPPB SCH ×2 (09:30→22:00)
[2016-11-23] MEDS: TOBRAMYCIN NPPB SCH ×2 (09:30→22:00)
[2016-11-23] MEDS: DORNASE ALFA 1 MG/ML INH SCH ×2 (09:40→21:55)
[2016-11-23] MEDS: POLYETHYLENE GLYCOL 17 GM PACKET PO SCH (09:47)
[2016-11-23 09:55] VITALS: BP 127/77
[2016-11-23] MEDS: FENTANYL 25 MCG PATCH TD SCH (10:00)
[2016-11-23] MEDS: SODIUM CHLORIDE 0.9% 1,000 ML IV SCH ×2 (11:29→23:38)
[2016-11-23] MEDS: CIPROFLOXACIN/PMX 400MG/200ML 200 ML IV SCH ×2 (11:33→23:45)
[2016-11-23 15:55] VITALS: BP 148/96
[2016-11-23 20:34] VITALS: BP 153/96
[2016-11-24 02:19] VITALS: BP 174/92
[2016-11-24] MEDS: PIPERACILLIN/TAZO/PMX 4.5GM 100 ML IV SCH ×2 (02:32→10:28)
[2016-11-24] MEDS: HYDROmorphone 2 MG/ML, 1ML IV PRN ×7 (02:32→22:27)
[2016-11-24] MEDS: DIPHENHYDRAMINE 50 MG/ML, 1ML IVPush PRN ×4 (02:44→22:23)
[2016-11-24] MEDS: GUAIFENESIN 200 MG TABLET PO SCH ×4 (05:23→21:34)
[2016-11-24] MEDS: GABAPENTIN 300 MG CAPSULE PO SCH ×4 (05:23→21:35)
[2016-11-24 06:02] LABS: BLOOD UREA NITROGEN 13 mg/dL (7-18)
[2016-11-24] MEDS: PANTOPROZOLE 40MG TABLET PO SCH (07:57)
[2016-11-24] MEDS: BUPROPION SR 100 MG TABLET PO SCH (07:58)
[2016-11-24] MEDS: PANCRELIPASE 24,000 CAPSULE.DR PO SCH ×3 (07:58→16:18)
[2016-11-24] MEDS: POLYETHYLENE GLYCOL 17 GM PACKET PO SCH (08:00)
[2016-11-24] MEDS: PHYTONADIONE 10 MG/ML, 1ML IM SCH (08:01)
[2016-11-24] MEDS: INSULIN REGULAR 100 UNITS/ML, 3ML VIAL SQ-INSULIN SCH ×4 (08:02→21:35)
[2016-11-24] MEDS: INSULIN DETEMIR 100 UNITS/ML, PEN SQ-INSULIN SCH (08:04)
[2016-11-24] MEDS: ALBUTEROL SULFATE 2.5 MG/3 ML NPPB SCH ×4 (08:20→20:00)
[2016-11-24] MEDS: TOBRAMYCIN NPPB SCH ×2 (08:32→21:00)
[2016-11-24] MEDS: SODIUM CHLORIDE NPPB SCH ×2 (08:32→21:00)
[2016-11-24] MEDS: DORNASE ALFA 1 MG/ML INH SCH ×2 (08:32→21:00)
[2016-11-24] MEDS: SODIUM CHLORIDE 0.9% 1,000 ML IV SCH ×2 (09:01→19:18)
[2016-11-24 09:50] VITALS: BP 128/85
[2016-11-24] MEDS: HYDROcodone/APAP 10/325 MG TABLET PO PRN ×3 (10:28→21:35)
[2016-11-24] MEDS: CIPROFLOXACIN/PMX 400MG/200ML 200 ML IV SCH ×2 (12:10→23:28)
[2016-11-24 15:27] VITALS: BP 146/90
[2016-11-24] MEDS: MEROPENEM 1 GM in SODIUM CHLORIDE 0.9% 100 ML IV SCH (16:19)
[2016-11-24 21:16] VITALS: BP 148/93
[2016-11-24] MEDS: LORazepam 1MG TABLET PO PRN (23:40)
[2016-11-25] MEDS: MEROPENEM 1 GM in SODIUM CHLORIDE 0.9% 100 ML IV SCH ×3 (01:11→17:30)
[2016-11-25 01:16] VITALS: BP 149/87
[2016-11-25] MEDS: HYDROmorphone 2 MG/ML, 1ML IV PRN ×6 (01:39→23:42)
[2016-11-25] MEDS: GABAPENTIN 300 MG CAPSULE PO SCH ×4 (06:24→21:52)
[2016-11-25] MEDS: GUAIFENESIN 200 MG TABLET PO SCH ×4 (06:24→21:52)
[2016-11-25] MEDS: SODIUM CHLORIDE 0.9% 1,000 ML IV SCH ×2 (06:40→17:36)
[2016-11-25] MEDS: DIPHENHYDRAMINE 50 MG/ML, 1ML IVPush PRN ×4 (06:41→23:45)
[2016-11-25] MEDS: ALBUTEROL SULFATE 2.5 MG/3 ML NPPB SCH ×4 (07:15→19:55)
[2016-11-25] MEDS: POLYETHYLENE GLYCOL 17 GM PACKET PO SCH (09:06)
[2016-11-25] MEDS: PANTOPROZOLE 40MG TABLET PO SCH (09:06)
[2016-11-25] MEDS: PHYTONADIONE 10 MG/ML, 1ML IM SCH (09:07)
[2016-11-25] MEDS: INSULIN DETEMIR 100 UNITS/ML, PEN SQ-INSULIN SCH (09:07)
[2016-11-25] MEDS: BUPROPION SR 100 MG TABLET PO SCH (09:07)
[2016-11-25] MEDS: PANCRELIPASE 24,000 CAPSULE.DR PO SCH ×3 (09:08→17:31)
[2016-11-25] MEDS: INSULIN REGULAR 100 UNITS/ML, 3ML VIAL SQ-INSULIN SCH ×4 (09:08→21:57)
[2016-11-25 09:57] VITALS: BP 143/92
[2016-11-25] MEDS: DORNASE ALFA 1 MG/ML INH SCH ×2 (11:10→20:00)
[2016-11-25] MEDS: TOBRAMYCIN NPPB SCH ×2 (11:20→20:25)
[2016-11-25] MEDS: SODIUM CHLORIDE NPPB SCH ×2 (11:20→20:25)
[2016-11-25] MEDS: CIPROFLOXACIN/PMX 400MG/200ML 200 ML IV SCH (11:22)
[2016-11-25] MEDS: HYDROcodone/APAP 10/325 MG TABLET PO PRN ×3 (13:16→21:53)
[2016-11-25 16:18] VITALS: BP 120/83
[2016-11-25 21:38] VITALS: BP 178/96
[2016-11-25] MEDS: LORazepam 1MG TABLET PO PRN (21:52)
[2016-11-25] MEDS: DOCUSATE 50 MG/5 ML, 10ML UDC PO SCH (21:53)
[2016-11-26] MEDS: CIPROFLOXACIN/PMX 400MG/200ML 200 ML IV SCH ×2 (00:44→12:51)
[2016-11-26] MEDS: MEROPENEM 1 GM in SODIUM CHLORIDE 0.9% 100 ML IV SCH ×3 (01:58→16:18)
[2016-11-26] MEDS: HYDROcodone/APAP 10/325 MG TABLET PO PRN (02:04)
[2016-11-26] MEDS: DIPHENHYDRAMINE 50 MG/ML, 1ML IVPush PRN ×3 (04:09→22:39)
[2016-11-26] MEDS: HYDROmorphone 2 MG/ML, 1ML IV PRN ×4 (04:10→22:39)
[2016-11-26 04:24] VITALS: BP 145/92
[2016-11-26 04:43] LABS: BLOOD UREA NITROGEN 10 mg/dL (7-18)
[2016-11-26 04:51] LABS: ASPARTATE AMINO TRANSFERASE 12 U/L (15-37)
[2016-11-26] MEDS: PANCRELIPASE 24,000 CAPSULE.DR PO SCH ×3 (07:00→16:00)
[2016-11-26] MEDS: GUAIFENESIN 200 MG TABLET PO SCH ×4 (07:23→19:59)
[2016-11-26] MEDS: SODIUM CHLORIDE 0.9% 1,000 ML IV SCH ×3 (07:23→22:00)
[2016-11-26] MEDS: GABAPENTIN 300 MG CAPSULE PO SCH ×4 (07:24→20:00)
[2016-11-26 07:38] VITALS: BP 125/78
[2016-11-26] MEDS: ALBUTEROL SULFATE 2.5 MG/3 ML NPPB SCH ×4 (08:00→22:45)
[2016-11-26] MEDS: DORNASE ALFA 1 MG/ML INH SCH ×2 (08:07→23:20)
[2016-11-26] MEDS: SODIUM CHLORIDE NPPB SCH ×2 (08:15→23:10)
[2016-11-26] MEDS: TOBRAMYCIN NPPB SCH ×2 (08:15→23:10)
[2016-11-26] MEDS: BUPROPION SR 100 MG TABLET PO SCH (08:22)
[2016-11-26] MEDS: INSULIN DETEMIR 100 UNITS/ML, PEN SQ-INSULIN SCH (08:24)
[2016-11-26] MEDS: INSULIN REGULAR 100 UNITS/ML, 3ML VIAL SQ-INSULIN SCH ×4 (08:25→20:34)
[2016-11-26] MEDS: DOCUSATE 50 MG/5 ML, 10ML UDC PO SCH ×2 (08:25→20:00)
[2016-11-26] MEDS: PHYTONADIONE 10 MG/ML, 1ML IM SCH (08:26)
[2016-11-26] MEDS: PANTOPROZOLE 40MG TABLET PO SCH (08:27)
[2016-11-26] MEDS: POLYETHYLENE GLYCOL 17 GM PACKET PO SCH (08:28)
[2016-11-26] MEDS: FENTANYL 25 MCG PATCH TD SCH (09:04)
[2016-11-26] MEDS ORDERED: FENTANYL REMOVE PATCH NOTE XX SCH (10:00)
[2016-11-26] MEDS ORDERED: DEXTROSE 50%, 50ML SYRINGE ONE (12:30)
[2016-11-26] MEDS: DEXTROSE 50%, 50ML SYRINGE IVPush PRN ×2 (12:30→12:58)
[2016-11-26] MEDS ORDERED: DEXTROSE 4 GM TAB.CHEW PO PRN (13:00)
[2016-11-26] MEDS ORDERED: GLUCAGON 1 MG IM PRN (13:00)
[2016-11-26 13:20] VITALS: BP 119/68
[2016-11-26] MEDS: LORazepam 1MG TABLET PO PRN (19:59)
[2016-11-26] MEDS: SODIUM CHLORIDE FLUSH 10ML SYR IVF SCH (20:35)
[2016-11-26 20:38] VITALS: BP 152/87
[2016-11-27] MEDS: CIPROFLOXACIN/PMX 400MG/200ML 200 ML IV SCH ×2 (00:06→11:05)
[2016-11-27] MEDS: MEROPENEM 1 GM in SODIUM CHLORIDE 0.9% 100 ML IV SCH ×3 (01:50→17:20)
[2016-11-27] MEDS: HYDROcodone/APAP 10/325 MG TABLET PO PRN ×2 (02:00→08:09)
[2016-11-27 03:08] VITALS: BP 133/81
[2016-11-27] MEDS: DIPHENHYDRAMINE 50 MG/ML, 1ML IVPush PRN ×4 (04:45→23:43)
[2016-11-27] MEDS: HYDROmorphone 2 MG/ML, 1ML IV PRN ×4 (04:46→23:42)
[2016-11-27] MEDS: GUAIFENESIN 200 MG TABLET PO SCH ×4 (06:36→21:49)
[2016-11-27] MEDS: GABAPENTIN 300 MG CAPSULE PO SCH ×4 (06:36→21:49)
[2016-11-27] MEDS: PANCRELIPASE 24,000 CAPSULE.DR PO SCH ×3 (06:36→16:32)
[2016-11-27] MEDS: SODIUM CHLORIDE 0.9% 1,000 ML IV SCH ×2 (06:37→17:19)
[2016-11-27] MEDS: ALBUTEROL SULFATE 2.5 MG/3 ML NPPB SCH ×4 (07:00→23:45)
[2016-11-27] MEDS: TOBRAMYCIN NPPB SCH (07:36)
[2016-11-27] MEDS: SODIUM CHLORIDE NPPB SCH (07:36)
[2016-11-27] MEDS: DORNASE ALFA 1 MG/ML INH SCH (07:37)
[2016-11-27] MEDS: INSULIN REGULAR 100 UNITS/ML, 3ML VIAL SQ-INSULIN SCH ×4 (08:08→21:54)
[2016-11-27] MEDS: PANTOPROZOLE 40MG TABLET PO SCH (08:09)
[2016-11-27 09:06] VITALS: BP 145/90
[2016-11-27] MEDS: DOCUSATE 100 MG CAPSULE PO SCH ×2 (09:42→21:50)
[2016-11-27] MEDS: POLYETHYLENE GLYCOL 17 GM PACKET PO SCH (09:42)
[2016-11-27] MEDS: PHYTONADIONE 10 MG/ML, 1ML IM SCH (09:42)
[2016-11-27] MEDS: BUPROPION SR 100 MG TABLET PO SCH (09:42)
[2016-11-27] MEDS: SODIUM CHLORIDE FLUSH 10ML SYR IVF SCH ×2 (09:42→21:50)
[2016-11-27] MEDS: INSULIN DETEMIR 100 UNITS/ML, PEN SQ-INSULIN SCH (09:43)
[2016-11-27 14:35] VITALS: BP 145/84
[2016-11-27 21:08] VITALS: BP 154/85
[2016-11-27] MEDS: LORazepam 1MG TABLET PO PRN (21:50)
[2016-11-28] MEDS: DORNASE ALFA 1 MG/ML INH SCH ×2 (00:10→07:51)
[2016-11-28] MEDS: CIPROFLOXACIN/PMX 400MG/200ML 200 ML IV SCH ×2 (00:35→11:52)
[2016-11-28] MEDS: MEROPENEM 1 GM in SODIUM CHLORIDE 0.9% 100 ML IV SCH ×2 (01:37→09:47)
[2016-11-28] MEDS: SODIUM CHLORIDE 0.9% 1,000 ML IV SCH (03:58)
[2016-11-28 04:52] VITALS: BP 151/94
[2016-11-28 04:55] VITALS: BP 154/94
[2016-11-28] MEDS: HYDROmorphone 2 MG/ML, 1ML IV PRN ×2 (05:54→11:49)
[2016-11-28] MEDS: DIPHENHYDRAMINE 50 MG/ML, 1ML IVPush PRN ×2 (05:55→11:49)
[2016-11-28] MEDS: GABAPENTIN 300 MG CAPSULE PO SCH ×2 (06:46→11:51)
[2016-11-28] MEDS: GUAIFENESIN 200 MG TABLET PO SCH ×2 (06:46→11:51)
[2016-11-28] MEDS: ALBUTEROL SULFATE 2.5 MG/3 ML NPPB SCH ×2 (07:00→10:53)
[2016-11-28] MEDS: TOBRAMYCIN NPPB SCH ×2 (07:51)
[2016-11-28] MEDS: SODIUM CHLORIDE NPPB SCH ×2 (07:51)
[2016-11-28 08:00] VITALS: BP 142/87
[2016-11-28] MEDS: PANTOPROZOLE 40MG TABLET PO SCH (08:10)
[2016-11-28] MEDS: PANCRELIPASE 24,000 CAPSULE.DR PO SCH ×2 (08:10→11:51)
[2016-11-28] MEDS: INSULIN REGULAR 100 UNITS/ML, 3ML VIAL SQ-INSULIN SCH ×2 (08:10→11:52)
[2016-11-28] MEDS ORDERED: GUAI200T3 PO (09:22)
[2016-11-28] MEDS ORDERED: PHYT10AM IM (09:22)
[2016-11-28] MEDS ORDERED: LORA-446 PO (09:22)
[2016-11-28] MEDS ORDERED: HYDR2VIA2 IV (09:22)
[2016-11-28] MEDS ORDERED: DORN1SOL INH (09:22)
[2016-11-28] MEDS ORDERED: POLY17PO5 PO (09:22)
[2016-11-28] MEDS ORDERED: LIPA1CAP61 PO (09:22)
[2016-11-28] MEDS ORDERED: DOCU-30 PO (09:22)
[2016-11-28] MEDS ORDERED: ciprofloxacin IV (09:22)
[2016-11-28] MEDS ORDERED: Pantoprazole Sodium PO (09:22)
[2016-11-28] MEDS ORDERED: GABA300C10 PO (09:22)
[2016-11-28] MEDS ORDERED: TOBR300A5 NPPB (09:22)
[2016-11-28] MEDS ORDERED: BUPR-173 PO (09:22)
[2016-11-28] MEDS ORDERED: ALBU2.5V NPPB ×2 (09:22)
[2016-11-28] MEDS ORDERED: MERO1VIA15 IV (09:22)
[2016-11-28] MEDS ORDERED: HYDR-3307 PO (09:22)
[2016-11-28] MEDS ORDERED: INSU100I28 SQ-INSULIN (09:22)
[2016-11-28] MEDS ORDERED: INSU100V5 SQ-INSULIN (09:22)
[2016-11-28] MEDS: SODIUM CHLORIDE FLUSH 10ML SYR IVF SCH (09:46)
[2016-11-28] MEDS: LORazepam 1MG TABLET PO PRN (09:46)
[2016-11-28] MEDS: DOCUSATE 100 MG CAPSULE PO SCH (09:46)
[2016-11-28] MEDS: BUPROPION SR 100 MG TABLET PO SCH (09:46)
[2016-11-28] MEDS: PHYTONADIONE 10 MG/ML, 1ML IM SCH (09:46)
[2016-11-28] MEDS: INSULIN DETEMIR 100 UNITS/ML, PEN SQ-INSULIN SCH (09:47)
[2016-11-28] MEDS: POLYETHYLENE GLYCOL 17 GM PACKET PO SCH (09:47)
[2016-11-28 14:03] VITALS: BP 138/93
== END 2016-11-28 14:51 | DRG 135 ==
LOC: 4NOR 18:21
PROVIDERS: ADMIT Internal Medicine
PROC: 09BR4ZZ Excision of Left Maxillary Sinus, Percutaneous Endoscopic Approach (ICD-10-PCS; 2016-11-22)
PROC: 09BV4ZZ Excision of Left Ethmoid Sinus, Percutaneous Endoscopic Approach (ICD-10-PCS; 2016-11-22)
PROC: 09BU4ZZ Excision of Right Ethmoid Sinus, Percutaneous Endoscopic Approach (ICD-10-PCS; 2016-11-22)
PROC: 09BQ4ZZ Excision of Right Maxillary Sinus, Percutaneous Endoscopic Approach (ICD-10-PCS; 2016-11-22)
PROC: 8E09XBF Computer Assisted Procedure of Head and Neck Region, With Fluoroscopy (ICD-10-PCS; 2016-11-22)
PROC: 099X4ZZ Drainage of Left Sphenoid Sinus, Percutaneous Endoscopic Approach (ICD-10-PCS; 2016-11-22)
PROC: 099R4ZZ Drainage of Left Maxillary Sinus, Percutaneous Endoscopic Approach (ICD-10-PCS; 2016-11-22)
PROC: 099Q4ZZ Drainage of Right Maxillary Sinus, Percutaneous Endoscopic Approach (ICD-10-PCS; 2016-11-22)
PROC: 09B Ear, Nose, Sinus, Excision (ICD-10-PCS; principal; 2016-11-22 13:00)
DX: J34.1 Cyst and mucocele of nose and nasal sinus (principal); J15.1 Pneumonia due to Pseudomonas; E84.0 Cystic fibrosis with pulmonary manifestations; E43 Unspecified severe protein-calorie malnutrition; K86.1 Other chronic pancreatitis; C78.7 Secondary malignant neoplasm of liver and intrahepatic bile duct; C79.51 Secondary malignant neoplasm of bone; J47.0 Bronchiectasis with acute lower respiratory infection; J96.10 Chronic respiratory failure, unspecified whether with hypoxia or hypercapnia; T81.30XA Disruption of wound, unspecified, initial encounter; M86.8X8 Other osteomyelitis, other site; E84.9 Cystic fibrosis, unspecified; J01.10 Acute frontal sinusitis, unspecified; E11.21 Type 2 diabetes mellitus with diabetic nephropathy; D63.8 Anemia in other chronic diseases classified elsewhere; F32.9 Major depressive disorder, single episode, unspecified; E11.22 Type 2 diabetes mellitus with diabetic chronic kidney disease; E11.42 Type 2 diabetes mellitus with diabetic polyneuropathy; E11.69 Type 2 diabetes mellitus with other specified complication; C50.929 Malignant neoplasm of unspecified site of unspecified male breast; I12.9 Hypertensive chronic kidney disease with stage 1 through stage 4 chronic kidney disease, or unspecified chronic kidney disease; E78.5 Hyperlipidemia, unspecified; E03.9 Hypothyroidism, unspecified; N18.3 Chronic kidney disease, stage 3 (moderate); G89.4 Chronic pain syndrome; E11.65 Type 2 diabetes mellitus with hyperglycemia; F11.90 Opioid use, unspecified, uncomplicated; F41.9 Anxiety disorder, unspecified; F43.21 Adjustment disorder with depressed mood; J30.89 Other allergic rhinitis; J32.4 Chronic pansinusitis; B95.2 Enterococcus as the cause of diseases classified elsewhere; B95.62 Methicillin resistant Staphylococcus aureus infection as the cause of diseases classified elsewhere; T45.1X5A Adverse effect of antineoplastic and immunosuppressive drugs, initial encounter; G43.909 Migraine, unspecified, not intractable, without status migrainosus; K08.89 Other specified disorders of teeth and supporting structures; R04.0 Epistaxis; J01.00 Acute maxillary sinusitis, unspecified; T38.0X5A Adverse effect of glucocorticoids and synthetic analogues, initial encounter; Z91.041 Radiographic dye allergy status; Z79.899 Other long term (current) drug therapy; Z87.01 Personal history of pneumonia (recurrent); Z83.3 Family history of diabetes mellitus; Z79.4 Long term (current) use of insulin; Z85.3 Personal history of malignant neoplasm of breast; Z99.81 Dependence on supplemental oxygen; Z88.2 Allergy status to sulfonamides; Z88.8 Allergy status to other drugs, medicaments and biological substances; Z88.5 Allergy status to narcotic agent; Z91.010 Allergy to peanuts; Y92.89 Other specified places as the place of occurrence of the external cause; B96.5 Pseudomonas (aeruginosa) (mallei) (pseudomallei) as the cause of diseases classified elsewhere
CPT/HCPCS: 36415; 70486; 70553; 71010; 80048; 80053; 81001; 82436; 82570; 82785; 82947; 82962; 83880; 84133; 84300; 84446; 84590; 85025; 85610; 85651; 86140; 86141; 87070; 87075; 87077; 87186; 87205; 88304; 88331; 93005; 94640; 94667; 94668; A9585; J0744; J1170; J1815; J2185; J2250; J2543; J2704; J2710; J3010; J3430; J3490; J7613; J7639; J7682; J0330; J1200; J2060; J2370; J2930; J7030; J7120

== ENCOUNTER 2017-04-29 22:27 | Inpatient (IN) | payer MEDICAID, MEDICARE ==
[~2017-04-29] VITALS: Ht 172.7 cm; Wt 71.1 kg
[~2017-04-29 22:27] MED LIST changes: +DIPH50VI IVPush; -DIPH50VI4 IVPush; +DOCU-131 PO; -GUAI400T26 PO; +GUAI400T66 PO; +HYDR-3307 PO; +LIPA1CAP61 PO; +LORA-446 PO; +MERO1VIA15 IV; +PHYT10AM IM; +Pantoprazole Sodium PO; +TOBR300A5 NPPB; +ciprofloxacin IV
[2017-04-29] MEDS ORDERED: SODIUM CHLORIDE FLUSH 10ML SYR IVF ONE (23:00)
[2017-04-29] MEDS ORDERED: ALBUTEROL SULFATE 2.5 MG/3 ML NPPB ONE (23:00)
[2017-04-29] MEDS ORDERED: HYDROmorphone 1 MG/ML, 1ML IV ONE (23:00)
[2017-04-29] MEDS ORDERED: HYDROmorphone 1 MG/ML, 1ML ONE (23:10)
[2017-04-29] MEDS ORDERED: ONDANSETRON 2MG/ML, 2ML ONE (23:10)
[2017-04-29] MEDS ORDERED: ALBUTEROL SULFATE 2.5 MG/3 ML ONE (23:19)
[2017-04-29 23:30] LABS: HEMATOCRIT 37.1 % (39.2-51.8); HEMOGLOBIN 11.2 g/dL (13.7-18.0); WHITE BLOOD COUNT 13.1 x10^3/uL (3.4-10)
[2017-04-29] MEDS ORDERED: ONDANSETRON 2MG/ML, 2ML IVPush ONE (23:30)
[2017-04-29 23:36] LABS: ASPARTATE AMINO TRANSFERASE 12 U/L (15-37); BLOOD UREA NITROGEN 17 mg/dL (7-18)
[2017-04-29 23:50] LABS: IS PT STATUS REG ER OR PRE ER? YES
[2017-04-30] MEDS ORDERED: SODIUM CHLORIDE 0.9%, 500ML IVBOLUS ONE ×2 (00:30→01:00)
[2017-04-30] MEDS ORDERED: PIPERACILLIN/TAZO/PMX 3.375GM 50 ML IV ONE (01:00)
[2017-04-30] MEDS ORDERED: INSU100V8 SQ (01:18)
[2017-04-30] MEDS ORDERED: OMEP10CA4 PO (01:18)
[2017-04-30] MEDS ORDERED: INSU100C SQ-INSULIN (01:18)
[2017-04-30] MEDS ORDERED: PIPERACILLIN/TAZO/PMX 3.375GM 50 ML ONE ×2 (01:21→09:13)
[2017-04-30] MEDS ORDERED: VANCOMYCIN IV ONE (01:30)
[2017-04-30] MEDS ORDERED: ONDANSETRON 2MG/ML, 2ML IVPush PRN (01:30)
[2017-04-30] MEDS ORDERED: PIPERACILLIN/TAZO/PMX 3.375GM 50 ML IV SCH (01:30)
[2017-04-30] MEDS ORDERED: VANCOMYCIN PER PHARMACY IV ONE (01:30)
[2017-04-30] MEDS: PANCRELIPASE 24,000 CAPSULE.DR PO SCH ×4 (01:30→16:45)
[2017-04-30] MEDS ORDERED: DORNASE ALFA 1 MG/ML NPPB ONE (01:30)
[2017-04-30] MEDS ORDERED: VANCOMYCIN PER PHARMACY MC PRN (01:30)
[2017-04-30] MEDS ORDERED: SODIUM CHLORIDE 0.9% IV ONE (01:30)
[2017-04-30] MEDS ORDERED: HYDROmorphone 2MG TABLET PO ONE (01:30)
[2017-04-30] MEDS ORDERED: ENOXAPARIN 40 MG/0.4 ML ONE (01:47)
[2017-04-30] MEDS ORDERED: HYDROmorphone 2 MG/ML, 1ML ONE ×2 (01:47→07:32)
[2017-04-30] MEDS: HYDROmorphone 2 MG/ML, 1ML IV PRN ×4 (01:50→20:24)
[2017-04-30] MEDS: ENOXAPARIN 40 MG/0.4 ML SQ SCH (01:51)
[2017-04-30] MEDS ORDERED: ALBUTEROL/IPRATROPIUM 2.5MG/0.5MG, 3 ML NPPB PRN (02:00)
[2017-04-30] MEDS ORDERED: ALBUTEROL/IPRATROPIUM 2.5MG/0.5MG, 3 ML NPPB SCH ×2 (02:00→03:00)
[2017-04-30] MEDS ORDERED: PHARMACOKINETIC MONITORING MC PRN (02:00)
[2017-04-30] MEDS ORDERED: DIPHENHYDRAMINE 50 MG/ML, 1ML ONE (02:09)
[2017-04-30] MEDS: GABAPENTIN 300 MG CAPSULE PO SCH ×5 (02:30→20:24)
[2017-04-30] MEDS ORDERED: DIPHENHYDRAMINE 50 MG/ML, 1ML IVPush ONE (02:30)
[2017-04-30] MEDS: INSULIN ASPART 100 UNITS/ML, PEN SQ-INSULIN SCH ×5 (02:34→20:57)
[2017-04-30] MEDS ORDERED: ALBUTEROL/IPRATROPIUM 2.5MG/0.5MG, 3 ML ONE ×2 (02:40→06:29)
[2017-04-30] MEDS ORDERED: ALBUTEROL SULFATE 2.5 MG/3 ML ONE ×2 (06:32→10:52)
[2017-04-30] MEDS: ALBUTEROL SULFATE 2.5 MG/3 ML NPPB SCH ×5 (06:42→23:13)
[2017-04-30] MEDS: DORNASE ALFA 1 MG/ML INH SCH ×2 (06:52→19:47)
[2017-04-30] MEDS ORDERED: ALBUTEROL SULFATE 2.5 MG/3 ML NPPB PRN (07:00)
[2017-04-30] MEDS: BUPROPION SR 100 MG TABLET PO SCH (09:32)
[2017-04-30] MEDS: PIPERACILLIN/TAZO/PMX 3.375GM 50 ML IV SCH ×2 (09:33→17:36)
[2017-04-30] MEDS: INSULIN DETEMIR 100 UNITS/ML, PEN SQ-INSULIN SCH (11:00)
[2017-04-30 12:24] VITALS: BP 149/79
[2017-04-30 12:29] VITALS: BP 149/79
[2017-04-30] MEDS: SODIUM CHLORIDE FLUSH 10ML SYR IVF SCH ×2 (13:25→20:31)
[2017-04-30] MEDS: SODIUM CHLORIDE 0.9% 1,000 ML IV SCH (13:25)
[2017-04-30 19:32] VITALS: BP 165/106
[2017-04-30] MEDS ORDERED: DIPHENHYDRAMINE 25 MG CAPSULE PO PRN (21:00)
[2017-04-30] MEDS: VANCOMYCIN 1,300 MG in SODIUM CHLORIDE 0.9% 250 ML IV SCH (21:30)
[2017-04-30] MEDS: DIPHENHYDRAMINE 50 MG/ML, 1ML IVPush PRN (21:30)
[2017-05-01] MEDS: PIPERACILLIN/TAZO/PMX 3.375GM 50 ML IV SCH ×3 (01:05→17:17)
[2017-05-01] MEDS: SODIUM CHLORIDE 0.9% 1,000 ML IV SCH ×3 (01:05→23:00)
[2017-05-01 01:30] VITALS: BP 164/95
[2017-05-01] MEDS: ENOXAPARIN 40 MG/0.4 ML SQ SCH (01:30)
[2017-05-01] MEDS: HYDROmorphone 2 MG/ML, 1ML IV PRN ×2 (02:16→08:20)
[2017-05-01] MEDS: ALBUTEROL SULFATE 2.5 MG/3 ML NPPB SCH ×6 (02:22→23:04)
[2017-05-01] MEDS: GABAPENTIN 300 MG CAPSULE PO SCH ×4 (05:36→21:47)
[2017-05-01 06:58] LABS: ASPARTATE AMINO TRANSFERASE 18 U/L (15-37); BLOOD UREA NITROGEN 13 mg/dL (7-18)
[2017-05-01 07:17] LABS: HEMATOCRIT 33.8 % (39.2-51.8); HEMOGLOBIN 10.3 g/dL (13.7-18.0); WHITE BLOOD COUNT 13.9 x10^3/uL (3.4-10)
[2017-05-01] MEDS: INSULIN ASPART 100 UNITS/ML, PEN SQ-INSULIN SCH ×4 (07:36→21:00)
[2017-05-01] MEDS: BUPROPION SR 100 MG TABLET PO SCH (08:16)
[2017-05-01] MEDS: PANCRELIPASE 24,000 CAPSULE.DR PO SCH ×3 (08:17→17:16)
[2017-05-01] MEDS: SODIUM CHLORIDE FLUSH 10ML SYR IVF SCH ×2 (08:17→21:00)
[2017-05-01] MEDS: INSULIN DETEMIR 100 UNITS/ML, PEN SQ-INSULIN SCH (08:19)
[2017-05-01 08:30] VITALS: BP 157/101
[2017-05-01] MEDS: DORNASE ALFA 1 MG/ML INH SCH ×2 (09:00→20:26)
[2017-05-01] MEDS: KETOROLAC 30 MG/1 ML IVPush SCH ×3 (10:17→21:11)
[2017-05-01] MEDS: LORazepam 1MG TABLET PO PRN (11:22)
[2017-05-01] MEDS ORDERED: DEXTROSE 50%, 50ML SYRINGE IVPush ONE ×2 (13:25→17:30)
[2017-05-01] MEDS ORDERED: DEXTROSE 50%, 50ML SYRINGE ONE ×2 (13:28→15:00)
[2017-05-01 14:16] VITALS: BP 143/86
[2017-05-01] MEDS: HYDROmorphone 1 MG/ML, 1ML IV PRN ×2 (15:10→21:47)
[2017-05-01] MEDS: VANCOMYCIN 1,300 MG in SODIUM CHLORIDE 0.9% 250 ML IV SCH (16:59)
[2017-05-01] MEDS: DEXTROSE 10% 1,000 ML IV SCH (17:13)
[2017-05-01] MEDS: DIPHENHYDRAMINE 50 MG/ML, 1ML IVPush PRN (18:52)
[2017-05-01 19:59] VITALS: BP 157/99
[2017-05-01] MEDS: HYDROcodone/CHLORPHENIR ORAL SUSP PO PRN (23:38)
[2017-05-02] MEDS: HYDROmorphone 1 MG/ML, 1ML IV PRN ×4 (01:14→22:31)
[2017-05-02] MEDS: ENOXAPARIN 40 MG/0.4 ML SQ SCH (01:30)
[2017-05-02] MEDS: PIPERACILLIN/TAZO/PMX 3.375GM 50 ML IV SCH ×3 (01:44→16:45)
[2017-05-02] MEDS: LORazepam 1MG TABLET PO PRN ×2 (01:51→19:44)
[2017-05-02 02:26] VITALS: BP 180/101
[2017-05-02] MEDS: ALBUTEROL SULFATE 2.5 MG/3 ML NPPB SCH ×6 (02:58→23:00)
[2017-05-02] MEDS: KETOROLAC 30 MG/1 ML IVPush SCH (04:25)
[2017-05-02 05:43] LABS: HEMATOCRIT 30.4 % (39.2-51.8); HEMOGLOBIN 9.3 g/dL (13.7-18.0); WHITE BLOOD COUNT 11.9 x10^3/uL (3.4-10)
[2017-05-02 05:55] LABS: BLOOD UREA NITROGEN 14 mg/dL (7-18)
[2017-05-02 06:03] LABS: ASPARTATE AMINO TRANSFERASE 12 U/L (15-37); TOTAL IRON BINDING CAPACITY 331 mcg/dL (250-450)
[2017-05-02] MEDS: GABAPENTIN 300 MG CAPSULE PO SCH ×4 (06:32→19:29)
[2017-05-02] MEDS: INSULIN ASPART 100 UNITS/ML, PEN SQ-INSULIN SCH ×5 (07:00→21:32)
[2017-05-02 07:25] VITALS: BP 150/90
[2017-05-02] MEDS: BUPROPION SR 100 MG TABLET PO SCH (07:54)
[2017-05-02] MEDS: PANCRELIPASE 24,000 CAPSULE.DR PO SCH ×3 (07:54→15:40)
[2017-05-02] MEDS: SODIUM CHLORIDE FLUSH 10ML SYR IVF SCH ×2 (07:54→19:30)
[2017-05-02] MEDS: DEXTROSE 10% 1,000 ML IV SCH ×2 (08:49→22:30)
[2017-05-02] MEDS ORDERED: INSULIN DETEMIR 100 UNITS/ML, PEN SQ-INSULIN SCH (09:00)
[2017-05-02] MEDS: DORNASE ALFA 1 MG/ML INH SCH ×2 (09:00→19:16)
[2017-05-02] MEDS: VANCOMYCIN 1,300 MG in SODIUM CHLORIDE 0.9% 250 ML IV SCH (10:35)
[2017-05-02] MEDS: DIPHENHYDRAMINE 50 MG/ML, 1ML IVPush PRN ×2 (10:35→22:30)
[2017-05-02 14:39] VITALS: BP 131/80
[2017-05-02 20:00] VITALS: BP 150/89
[2017-05-02] MEDS ORDERED: OMNIPAQUE 350 MG/ML, 100ML BOTTLE ONE (22:56)
[2017-05-02] MEDS ORDERED: DIPHENHYDRAMINE 50 MG/ML, 1ML IVPush PRN (23:00)
[2017-05-03] MEDS: VANCOMYCIN 1,300 MG in SODIUM CHLORIDE 0.9% 250 ML IV SCH ×3 (00:44→23:04)
[2017-05-03] MEDS: DIPHENHYDRAMINE 50 MG/ML, 1ML IVPush PRN ×3 (00:52→23:04)
[2017-05-03] MEDS: ENOXAPARIN 40 MG/0.4 ML SQ SCH ×2 (01:18→01:19)
[2017-05-03] MEDS: HYDROmorphone 1 MG/ML, 1ML IV PRN ×3 (01:18→07:45)
[2017-05-03] MEDS: PIPERACILLIN/TAZO/PMX 3.375GM 50 ML IV SCH ×3 (01:19→17:36)
[2017-05-03 01:23] VITALS: BP 147/97
[2017-05-03] MEDS: ALBUTEROL SULFATE 2.5 MG/3 ML NPPB SCH ×6 (03:00→21:50)
[2017-05-03] MEDS: GABAPENTIN 300 MG CAPSULE PO SCH ×4 (05:03→21:06)
[2017-05-03] MEDS: LORazepam 1MG TABLET PO PRN ×2 (05:07→21:05)
[2017-05-03 05:53] LABS: HEMATOCRIT 29.7 % (39.2-51.8); HEMOGLOBIN 9.1 g/dL (13.7-18.0); WHITE BLOOD COUNT 12.8 x10^3/uL (3.4-10)
[2017-05-03] MEDS: PANCRELIPASE 24,000 CAPSULE.DR PO SCH ×3 (08:12→18:11)
[2017-05-03] MEDS: BUPROPION SR 100 MG TABLET PO SCH (08:14)
[2017-05-03] MEDS: IRON SUCROSE COMPLEX 100MG/5ML IV SCH (08:15)
[2017-05-03] MEDS: SODIUM CHLORIDE FLUSH 10ML SYR IVF SCH ×3 (08:18→21:07)
[2017-05-03 08:51] VITALS: BP 153/98
[2017-05-03] MEDS: INSULIN ASPART 100 UNITS/ML, PEN SQ-INSULIN SCH ×3 (10:26→21:07)
[2017-05-03] MEDS ORDERED: HYDROmorphone 2MG TABLET ONE ×3 (11:47→17:53)
[2017-05-03] MEDS: HYDROmorphone 4MG TABLET PO PRN ×2 (11:53→17:56)
[2017-05-03] MEDS: DORNASE ALFA 1 MG/ML INH SCH ×2 (11:55→21:45)
[2017-05-03 14:47] VITALS: BP 144/96
[2017-05-03] MEDS ORDERED: DEXTROSE 50%, 50ML VIAL ONE (17:30)
[2017-05-03] MEDS ORDERED: GLUCAGON 1 MG IM PRN (17:30)
[2017-05-03] MEDS ORDERED: DEXTROSE 50%, 50ML SYRINGE IVPush PRN (17:30)
[2017-05-03] MEDS ORDERED: DEXTROSE 4 GM TAB.CHEW PO PRN (17:30)
[2017-05-03] MEDS ORDERED: DEXTROSE 5% 50 ML ONE (17:50)
[2017-05-03] MEDS: HYDROcodone/CHLORPHENIR ORAL SUSP PO PRN (18:19)
[2017-05-03 20:36] VITALS: BP 158/94
[2017-05-04] MEDS ORDERED: HYDROmorphone 2MG TABLET ONE ×5 (00:10→22:26)
[2017-05-04] MEDS: PIPERACILLIN/TAZO/PMX 3.375GM 50 ML IV SCH (00:58)
[2017-05-04] MEDS: ENOXAPARIN 40 MG/0.4 ML SQ SCH (01:02)
[2017-05-04 01:03] VITALS: BP 139/83
[2017-05-04] MEDS: ALBUTEROL SULFATE 2.5 MG/3 ML NPPB SCH ×7 (01:42→22:30)
[2017-05-04] MEDS: HYDROmorphone 4MG TABLET PO PRN ×4 (03:58→22:28)
[2017-05-04] MEDS: GABAPENTIN 300 MG CAPSULE PO SCH ×4 (05:16→20:29)
[2017-05-04 05:42] LABS: BLOOD UREA NITROGEN 13 mg/dL (7-18)
[2017-05-04 05:46] LABS: ASPARTATE AMINO TRANSFERASE 18 U/L (15-37)
[2017-05-04 08:17] VITALS: BP 135/91
[2017-05-04] MEDS: IRON SUCROSE COMPLEX 100MG/5ML IV SCH ×2 (09:00→09:10)
[2017-05-04] MEDS: SODIUM CHLORIDE FLUSH 10ML SYR IVF SCH ×4 (09:00→20:39)
[2017-05-04] MEDS: DORNASE ALFA 1 MG/ML INH SCH ×2 (09:00→22:30)
[2017-05-04] MEDS: INSULIN ASPART 100 UNITS/ML, PEN SQ-INSULIN SCH ×4 (09:08→20:48)
[2017-05-04] MEDS: BUPROPION SR 100 MG TABLET PO SCH (09:09)
[2017-05-04] MEDS: PANCRELIPASE 24,000 CAPSULE.DR PO SCH ×3 (09:09→16:16)
[2017-05-04] MEDS ORDERED: COLCHICINE 0.6 MG TABLET PO ONE ×2 (11:30→12:30)
[2017-05-04] MEDS: CIPROFLOXACIN 500 MG TABLET PO SCH ×2 (11:41→20:29)
[2017-05-04 14:30] VITALS: BP 156/84
[2017-05-04] MEDS: LORazepam 1MG TABLET PO PRN (18:14)
[2017-05-04 20:43] VITALS: BP 158/100
[2017-05-05] MEDS: ENOXAPARIN 40 MG/0.4 ML SQ SCH (01:30)
[2017-05-05] MEDS: ALBUTEROL SULFATE 2.5 MG/3 ML NPPB SCH ×6 (02:01→19:10)
[2017-05-05] MEDS: LORazepam 1MG TABLET PO PRN ×2 (02:07→14:54)
[2017-05-05 02:09] VITALS: BP 147/96
[2017-05-05] MEDS ORDERED: HYDROmorphone 2MG TABLET ONE ×4 (04:23→22:28)
[2017-05-05] MEDS: HYDROmorphone 4MG TABLET PO PRN ×4 (04:25→22:29)
[2017-05-05 06:46] VITALS: BP 145/85
[2017-05-05] MEDS: PANCRELIPASE 24,000 CAPSULE.DR PO SCH ×3 (07:46→18:22)
[2017-05-05] MEDS: INSULIN ASPART 100 UNITS/ML, PEN SQ-INSULIN SCH ×4 (08:14→19:50)
[2017-05-05] MEDS: CIPROFLOXACIN 500 MG TABLET PO SCH ×2 (08:15→19:52)
[2017-05-05] MEDS: GABAPENTIN 300 MG CAPSULE PO SCH ×4 (08:16→19:52)
[2017-05-05] MEDS: BUPROPION SR 100 MG TABLET PO SCH (08:17)
[2017-05-05] MEDS: IRON SUCROSE COMPLEX 100MG/5ML IV SCH (08:17)
[2017-05-05] MEDS: SODIUM CHLORIDE FLUSH 10ML SYR IVF SCH ×4 (09:00→19:52)
[2017-05-05] MEDS: DORNASE ALFA 1 MG/ML INH SCH ×2 (11:02→19:15)
[2017-05-05 14:27] VITALS: BP 151/91
[2017-05-05] MEDS ORDERED: INSULIN DETEMIR 100 UNITS/ML, PEN SQ-INSULIN ONE (17:00)
[2017-05-05] MEDS ORDERED: INSULIN DETEMIR 100 UNITS/ML, PEN SQ-INSULIN SCH (18:00)
[2017-05-05 19:43] VITALS: BP 149/92
[2017-05-05 21:03] LABS: BLOOD UREA NITROGEN 15 mg/dL (7-18)
[2017-05-05] MEDS: SODIUM CHLORIDE 0.9% 1,000 ML IV SCH (23:43)
[2017-05-06] MEDS: LORazepam 1MG TABLET PO PRN ×2 (00:25→12:43)
[2017-05-06 00:28] VITALS: BP 162/106
[2017-05-06] MEDS ORDERED: PHARMACY MAY ADJ FOR RENAL FX MC PRN (00:30)
[2017-05-06] MEDS ORDERED: PHARMACY INSTRUCTION MC SCH (00:30)
[2017-05-06] MEDS ORDERED: KETOROLAC 30 MG/1 ML IVPush PRN (02:30)
[2017-05-06] MEDS: ALBUTEROL SULFATE 2.5 MG/3 ML NPPB SCH ×3 (03:00→10:15)
[2017-05-06] MEDS ORDERED: HYDROmorphone 2MG TABLET ONE ×2 (04:31→07:52)
[2017-05-06 05:21] LABS: BLOOD UREA NITROGEN 15 mg/dL (7-18)
[2017-05-06 05:27] LABS: HEMATOCRIT 30.3 % (39.2-51.8); HEMOGLOBIN 9.4 g/dL (13.7-18.0); WHITE BLOOD COUNT 14.3 x10^3/uL (3.4-10)
[2017-05-06] MEDS: SODIUM CHLORIDE 0.9% 1,000 ML IV SCH (06:34)
[2017-05-06] MEDS: DORNASE ALFA 1 MG/ML INH SCH (07:00)
[2017-05-06 07:28] VITALS: BP 116/79
[2017-05-06] MEDS: GABAPENTIN 300 MG CAPSULE PO SCH ×2 (08:04→11:14)
[2017-05-06] MEDS: PANCRELIPASE 24,000 CAPSULE.DR PO SCH ×2 (08:04→11:14)
[2017-05-06] MEDS: CIPROFLOXACIN 500 MG TABLET PO SCH (08:05)
[2017-05-06] MEDS: BUPROPION SR 100 MG TABLET PO SCH (08:05)
[2017-05-06] MEDS: HYDROmorphone 4MG TABLET PO PRN (08:06)
[2017-05-06] MEDS: IRON SUCROSE COMPLEX 100MG/5ML IV SCH (08:07)
[2017-05-06] MEDS: INSULIN ASPART 100 UNITS/ML, PEN SQ-INSULIN SCH ×2 (08:12→11:21)
[2017-05-06] MEDS: SODIUM CHLORIDE FLUSH 10ML SYR IVF SCH ×2 (09:00)
[2017-05-06] MEDS ORDERED: CIPR500T87 PO (09:44)
[2017-05-06] MEDS ORDERED: FERR325T18 PO (09:44)
[2017-05-06] MEDS ORDERED: INSU100V8 SQ (09:44)
[2017-05-06] MEDS ORDERED: HYDR4TAB48 PO (09:44)
[2017-05-06] MEDS ORDERED: BUPR-173 PO (09:45)
[2017-05-06] MEDS ORDERED: FLU VACC QS2017-18 (36MOS+) UP/PF 0.5 ML IM-VACC ONE (11:00)
== END 2017-05-06 14:25 | disposition home or self-care (01) | DRG 871 ==
LOC: ED 23:59 → EDIP 04-30 01:03 → 3NE 04-30 12:20 → 4WST 05-01 20:49
PROVIDERS: ADMIT Internal Medicine; ATTEND Hospitalist
DX: A41.9 Sepsis, unspecified organism (principal); J96.21 Acute and chronic respiratory failure with hypoxia; E43 Unspecified severe protein-calorie malnutrition; J18.9 Pneumonia, unspecified organism; E84.9 Cystic fibrosis, unspecified; J47.0 Bronchiectasis with acute lower respiratory infection; I89.0 Lymphedema, not elsewhere classified; D50.9 Iron deficiency anemia, unspecified; E11.65 Type 2 diabetes mellitus with hyperglycemia; G89.29 Other chronic pain; G43.909 Migraine, unspecified, not intractable, without status migrainosus; R65.20 Severe sepsis without septic shock; Z79.4 Long term (current) use of insulin; Z91.11 Patient's noncompliance with dietary regimen; Z68.23 Body mass index [BMI] 23.0-23.9, adult; Z88.5 Allergy status to narcotic agent; Z91.018 Allergy to other foods; Z91.010 Allergy to peanuts; Z88.2 Allergy status to sulfonamides; Z88.8 Allergy status to other drugs, medicaments and biological substances; Z91.048 Other nonmedicinal substance allergy status
CPT/HCPCS: 36415; 71010; 71275; 80048; 80053; 80202; 82040; 82947; 82962; 83540; 83550; 83605; 83735; 84100; 84145; 84484; 85025; 85610; 85730; 87040; 93005; 93970; 94640; 94667; 94668; 96361; 96374; 96375; J1170; J1650; J1756; J1815; J1885; J2405; J2543; J3370; J7613; J7639; Q9967; J1200; J7030; J7040; J7050; Q0163

== ENCOUNTER 2017-05-18 01:17 | Inpatient (IN) | payer MEDICARE ==
[~2017-05-18] VITALS: Ht 172.7 cm; Wt 63.6 kg
[~2017-05-18 01:17] MED LIST changes: +CIPR500T87 PO; +FERR325T18 PO; +HYDR4TAB48 PO; +OMEP10CA4 PO
[2017-05-18] MEDS ORDERED: SODIUM CHLORIDE FLUSH 10ML SYR IVF ONE (02:00)
[2017-05-18 02:02] LABS: BLOOD UREA NITROGEN 12 mg/dL (7-18)
[2017-05-18 02:06] LABS: IS PT STATUS REG ER OR PRE ER? YES
[2017-05-18] MEDS ORDERED: HYDROmorphone 1 MG/ML, 1ML ONE (02:07)
[2017-05-18 02:08] LABS: HEMATOCRIT 35.7 % (39.2-51.8); HEMOGLOBIN 10.8 g/dL (13.7-18.0); WHITE BLOOD COUNT 13.4 x10^3/uL (3.4-10)
[2017-05-18 02:09] LABS: DIFF TOTAL CELLS COUNTED 100 CELL DIFF
[2017-05-18 02:28] LABS: VERIFY COUNTS? YES
[2017-05-18] MEDS ORDERED: HYDROmorphone 1 MG/ML, 1ML IVPush PRN (02:30)
[2017-05-18 02:36] LABS: HYPOCHROMIA 1+; MICROCYTOSIS 2+; POLYCHROMASIA 1+
[2017-05-18] MEDS ORDERED: SODIUM CHLORIDE 0.9% 1,000 ML IV ONE (03:02)
[2017-05-18] MEDS ORDERED: ONDANSETRON 2MG/ML, 2ML IVPush PRN (03:30)
[2017-05-18] MEDS ORDERED: KETOROLAC 30 MG/1 ML IVPush PRN (06:00)
[2017-05-18 06:47] VITALS: BP 137/85
[2017-05-18] MEDS: CIPROFLOXACIN 500 MG TABLET PO SCH ×2 (08:39→17:25)
[2017-05-18] MEDS: DORNASE ALFA 1 MG/ML INH SCH ×2 (09:00→19:26)
[2017-05-18] MEDS: ALBUTEROL/IPRATROPIUM 2.5MG/0.5MG, 3 ML NPPB SCH ×2 (09:00→19:26)
[2017-05-18] MEDS ORDERED: ACETAMINOPHEN 325 MG TABLET PO PRN ×2 (10:30→20:00)
[2017-05-18] MEDS: INSULIN ASPART 100 UNITS/ML, PEN SQ-INSULIN SCH ×3 (11:00→21:09)
[2017-05-18] MEDS: GABAPENTIN 300 MG CAPSULE PO SCH ×3 (12:36→21:12)
[2017-05-18] MEDS: GUAIFENESIN 200 MG TABLET PO SCH ×3 (12:37→21:12)
[2017-05-18] MEDS: PANCRELIPASE 24,000 CAPSULE.DR PO SCH ×2 (12:38→16:02)
[2017-05-18 12:48] VITALS: BP 123/83
[2017-05-18] MEDS ORDERED: HYDROmorphone 2MG TABLET ONE ×2 (16:00→22:00)
[2017-05-18] MEDS: FERROUS SULFATE 325 MG TABLET PO SCH (16:03)
[2017-05-18] MEDS: HYDROmorphone 4MG TABLET PO PRN ×2 (16:04→22:06)
[2017-05-18 19:41] VITALS: BP 130/79
[2017-05-18] MEDS ORDERED: GLUCAGON 1 MG IM PRN (20:30)
[2017-05-18] MEDS ORDERED: DEXTROSE 4 GM TAB.CHEW PO PRN (20:30)
[2017-05-18] MEDS ORDERED: DEXTROSE 50%, 50ML SYRINGE IVPush PRN (20:30)
[2017-05-18] MEDS ORDERED: INSULIN DETEMIR 100 UNITS/ML, PEN SQ-INSULIN SCH (21:00)
[2017-05-18] MEDS: DOCUSATE 100 MG CAPSULE PO SCH (21:11)
[2017-05-18] MEDS: SODIUM CHLORIDE FLUSH 10ML SYR IVF SCH (21:13)
[2017-05-19] MEDS ORDERED: KETOROLAC 30 MG/1 ML IVPush PRN (01:00)
[2017-05-19 01:18] VITALS: BP 143/85
[2017-05-19] MEDS ORDERED: HYDROmorphone 2MG TABLET ONE ×2 (04:47→12:07)
[2017-05-19] MEDS: HYDROmorphone 4MG TABLET PO PRN ×2 (04:50→12:11)
[2017-05-19] MEDS: GABAPENTIN 300 MG CAPSULE PO SCH ×2 (04:50→10:18)
[2017-05-19] MEDS: CIPROFLOXACIN 500 MG TABLET PO SCH (04:51)
[2017-05-19] MEDS: GUAIFENESIN 200 MG TABLET PO SCH ×2 (04:51→10:20)
[2017-05-19] MEDS: INSULIN ASPART 100 UNITS/ML, PEN SQ-INSULIN SCH ×2 (07:00→12:26)
[2017-05-19] MEDS ORDERED: OMEPRAZOLE 10 MG CAPSULE.DR PO SCH (07:30)
[2017-05-19] MEDS ORDERED: BUPROPION SR 100 MG TABLET PO SCH (09:00)
[2017-05-19] MEDS ORDERED: POLYETHYLENE GLYCOL 17 GM PACKET PO SCH ×2 (09:00)
[2017-05-19 10:15] VITALS: BP 143/94
[2017-05-19] MEDS: PANCRELIPASE 24,000 CAPSULE.DR PO SCH ×2 (10:17→12:10)
[2017-05-19] MEDS: FERROUS SULFATE 325 MG TABLET PO SCH (10:18)
[2017-05-19] MEDS: SODIUM CHLORIDE FLUSH 10ML SYR IVF SCH (10:19)
[2017-05-19] MEDS: DOCUSATE 100 MG CAPSULE PO SCH (10:19)
[2017-05-19] MEDS ORDERED: SUMATRIPTAN 100 MG TABLET PO PRN (14:00)
[2017-05-19 14:10] VITALS: BP 157/83
[2017-05-19] MEDS ORDERED: HYDROmorphone 1 MG/ML, 1ML IV ONE (14:30)
[2017-05-19] MEDS ORDERED: INSULIN DETEMIR 100 UNITS/ML, PEN SQ-INSULIN SCH (21:00)
[2017-05-20] MEDS ORDERED: POLYETHYLENE GLYCOL 17 GM PACKET PO SCH (09:00)
== END 2017-05-19 16:05 | disposition left against medical advice (07) | DRG 177 ==
LOC: ED 01:49 → EDIP 03:02 → 4WST 03:35
PROVIDERS: ADMIT Hospitalist; ATTEND Hospitalist
DX: E84.0 Cystic fibrosis with pulmonary manifestations (principal); J96.21 Acute and chronic respiratory failure with hypoxia; E43 Unspecified severe protein-calorie malnutrition; N17.9 Acute kidney failure, unspecified; J47.9 Bronchiectasis, uncomplicated; D50.9 Iron deficiency anemia, unspecified; E11.65 Type 2 diabetes mellitus with hyperglycemia; G43.909 Migraine, unspecified, not intractable, without status migrainosus; K21.9 Gastro-esophageal reflux disease without esophagitis; Z88.6 Allergy status to analgesic agent; Z91.018 Allergy to other foods; Z91.010 Allergy to peanuts; Z88.2 Allergy status to sulfonamides; Z88.8 Allergy status to other drugs, medicaments and biological substances; Z79.4 Long term (current) use of insulin; Z79.891 Long term (current) use of opiate analgesic; Z91.19 Patient's noncompliance with other medical treatment and regimen; Z99.81 Dependence on supplemental oxygen; Z87.01 Personal history of pneumonia (recurrent); Z68.21 Body mass index [BMI] 21.0-21.9, adult; Z91.14 Patient's other noncompliance with medication regimen
CPT/HCPCS: 36415; 71010; 80048; 82040; 82947; 82962; 84484; 85025; 93005; 94640; 94667; 96374; J1170; J1815; J1885; J7620; J7639

== ENCOUNTER 2017-07-06 13:39 | Inpatient (IN) | payer MEDICARE ==
[~2017-07-06] VITALS: Ht 182.9 cm; Wt 47.7 kg
[2017-07-06] MEDS ORDERED: LIDOCAINE 1%, 20ML ONE (13:42)
[2017-07-06] MEDS ORDERED: ETOMIDATE 20 MG/10 ML ONE (14:00)
[2017-07-06] MEDS ORDERED: VECURONIUM 10 MG ONE (14:00)
[2017-07-06] MEDS ORDERED: PROPOFOL 10 MG/ML, 100ML IV ONE (14:00)
[2017-07-06] MEDS ORDERED: ALBUTEROL/IPRATROPIUM 2.5MG/0.5MG, 3 ML ONE (14:01)
[2017-07-06] MEDS ORDERED: PROPOFOL 100 ML IV PRN ×2 (14:01→14:51)
[2017-07-06] MEDS ORDERED: ETOMIDATE 20 MG/10 ML IV ONE (14:30)
[2017-07-06] MEDS ORDERED: SODIUM CHLORIDE FLUSH 10ML SYR IVF ONE (14:30)
[2017-07-06] MEDS ORDERED: SODIUM CHLORIDE FLUSH 10ML SYR IVF PRN (14:30)
[2017-07-06] MEDS ORDERED: VECURONIUM 10 MG IVPush ONE (14:30)
[2017-07-06] MEDS ORDERED: methylPREDNISolone SOD SUCC 125 MG/2 ML IVP ONE (14:30)
[2017-07-06] MEDS ORDERED: LACTULOSE 20 GM/30 ML UDC NG PRN (15:00)
[2017-07-06] MEDS ORDERED: BISACODYL 10 MG SUPP PR PRN (15:00)
[2017-07-06] MEDS: ALBUTEROL/IPRATROPIUM 2.5MG/0.5MG, 3 ML INLINE SCH ×3 (15:00→23:38)
[2017-07-06] MEDS ORDERED: ALBUTEROL/IPRATROPIUM 2.5MG/0.5MG, 3 ML INLINE SCH (15:00)
[2017-07-06] MEDS ORDERED: LIDOCAINE-MPF 1%, 2ML ENDO PRN (15:00)
[2017-07-06] MEDS ORDERED: SENNA/DOCUSATE TABLET NG PRN (15:00)
[2017-07-06] MEDS ORDERED: PHARMACY MAY ADJ FOR RENAL FX MC SCH (15:00)
[2017-07-06] MEDS ORDERED: SENNOSIDES 8.8 MG/5 ML ORAL SOL NG PRN (15:00)
[2017-07-06] MEDS ORDERED: methylPREDNISolone SOD SUCC 40 MG/ML ONE (15:03)
[2017-07-06 15:11] LABS: ABG COLLECTION SITE RIGHT BRACHIAL
[2017-07-06 15:12] LABS: ASPARTATE AMINO TRANSFERASE 77 U/L (15-37); BLOOD UREA NITROGEN 72 mg/dL (7-18)
[2017-07-06 15:19] LABS: IS PT STATUS REG ER OR PRE ER? YES
[2017-07-06 15:50] LABS: HEMOGLOBIN 13.6 g/dL (13.7-18.0)
[2017-07-06] MEDS ORDERED: REGULAR INSULIN 62.5 UNITS in SODIUM CHLORIDE 0.9% 249.375 ML IV PRN ×2 (16:00→17:00)
[2017-07-06] MEDS ORDERED: SODIUM CHLORIDE 0.9%, 500ML IVBOLUS ONE (16:00)
[2017-07-06 16:22] LABS: DIFF TOTAL CELLS COUNTED 100 CELL DIFF
[2017-07-06 16:23] LABS: VERIFY COUNTS? YES
[2017-07-06 16:24] LABS: ANISOCYTOSIS 2+; POLYCHROMASIA 1+; TARGET CELLS 1+
[2017-07-06 16:25] LABS: HYPOCHROMIA 1+
[2017-07-06 16:26] LABS: MICROCYTOSIS 1+
[2017-07-06] MEDS ORDERED: SODIUM CHLORIDE 0.9% 1,000 ML IV SCH (16:52)
[2017-07-06 16:53] LABS: ROULEAUX 1+
[2017-07-06] MEDS ORDERED: SODIUM BICARBONATE 8.4% 150 MEQ in DEXTROSE 5% 1,000 ML IV STA (17:15)
[2017-07-06 17:23] LABS: ABG COLLECTION SITE LEFT BRACHIAL
[2017-07-06] MEDS ORDERED: CEFTRIAXONE PMX 1GM/50ML 50 ML ONE (17:23)
[2017-07-06] MEDS ORDERED: PHARMACOKINETIC MONITORING MC PRN ×2 (17:30→18:00)
[2017-07-06] MEDS ORDERED: TOBRAMYCIN PER PHARMACY MC PRN (17:30)
[2017-07-06] MEDS ORDERED: CEFTRIAXONE PMX 1GM/50ML 50 ML IVPB ONE (17:30)
[2017-07-06 17:31] LABS: BLOOD UREA NITROGEN 79 mg/dL (7-18)
[2017-07-06] MEDS ORDERED: TOBRAMYCIN IV SCH (18:00)
[2017-07-06] MEDS ORDERED: TOBRAMYCIN IV ONE (18:00)
[2017-07-06] MEDS ORDERED: SODIUM CHLORIDE 0.9% IV ONE (18:00)
[2017-07-06] MEDS ORDERED: SODIUM CHLORIDE 0.9% IV SCH (18:00)
[2017-07-06] MEDS: MEROPENEM 1 GM in SODIUM CHLORIDE 0.9% 100 ML IV SCH (19:41)
[2017-07-06] MEDS: HEPARIN 5,000 UNITS/ML, 1ML SQ SCH (19:42)
[2017-07-06] MEDS: FAMOTIDINE 20 MG/2 ML IVPush SCH (19:42)
[2017-07-06] MEDS: SODIUM BICARB 8.4%,50ML SYR. 75 MEQ in DEXTROSE 5% 1,000 ML IV SCH (19:42)
[2017-07-06] MEDS: methylPREDNISolone SOD SUCC 125 MG/2 ML IVPush SCH (19:42)
[2017-07-06] MEDS: MIDAZOLAM HCL 25 MG in SODIUM CHLORIDE 0.9% 245 ML IV PRN (19:42)
[2017-07-06] MEDS: TOBRAMYCIN NPPB SCH (21:05)
[2017-07-06] MEDS: SODIUM CHLORIDE NPPB SCH (21:05)
[2017-07-06 21:59] VITALS: BP 121/75
[2017-07-06 23:07] LABS: BLOOD UREA NITROGEN 81 mg/dL (7-18)
[2017-07-07] MEDS: methylPREDNISolone SOD SUCC 125 MG/2 ML IVPush SCH ×2 (01:33→08:19)
[2017-07-07 03:38] LABS: ABG COLLECTION SITE RIGHT RADIAL; COLLATERAL CIRCULATION TESTING NORMAL
[2017-07-07] MEDS: ALBUTEROL/IPRATROPIUM 2.5MG/0.5MG, 3 ML INLINE SCH ×3 (03:45→10:30)
[2017-07-07 04:00] VITALS: BP 141/91
[2017-07-07] MEDS: HEPARIN 5,000 UNITS/ML, 1ML SQ SCH ×2 (04:17→11:45)
[2017-07-07] MEDS: MEROPENEM 1 GM in SODIUM CHLORIDE 0.9% 100 ML IV SCH ×2 (04:17→11:45)
[2017-07-07 05:48] LABS: ASPARTATE AMINO TRANSFERASE 131 U/L (15-37); BLOOD UREA NITROGEN 80 mg/dL (7-18)
[2017-07-07 05:54] LABS: HEMATOCRIT 38.8 % (39.2-51.8); HEMOGLOBIN 11.9 g/dL (13.7-18.0); WHITE BLOOD COUNT 31.5 x10^3/uL (3.4-10)
[2017-07-07] MEDS: MIDAZOLAM HCL 25 MG in SODIUM CHLORIDE 0.9% 245 ML IV PRN ×2 (05:59→11:46)
[2017-07-07] MEDS: SODIUM BICARB 8.4%,50ML SYR. 75 MEQ in DEXTROSE 5% 1,000 ML IV SCH (06:02)
[2017-07-07 06:22] LABS: DIFF TOTAL CELLS COUNTED 100 CELL DIFF
[2017-07-07 06:25] LABS: VERIFY COUNTS? YES
[2017-07-07 06:26] LABS: ANISOCYTOSIS 2+; HYPOCHROMIA 1+; MICROCYTOSIS 1+; POLYCHROMASIA 1+
[2017-07-07 06:27] LABS: TARGET CELLS 1+
[2017-07-07] MEDS: TOBRAMYCIN NPPB SCH (07:10)
[2017-07-07] MEDS: SODIUM CHLORIDE NPPB SCH (07:10)
[2017-07-07] MEDS ORDERED: SODIUM CHLORIDE 0.9% 1,000 ML IV SCH (07:30)
[2017-07-07] MEDS: FAMOTIDINE 20 MG/2 ML IVPush SCH (08:19)
[2017-07-07] MEDS ORDERED: INSULIN DETEMIR 100 UNITS/ML, PEN SQ-INSULIN SCH (09:12)
[2017-07-07] MEDS ORDERED: INSULIN ASPART 100 UNITS/ML, 3ML PEN MEDIUM DOSE SS SQ-INSULIN SCH (09:30)
[2017-07-07] MEDS ORDERED: LORazepam 2 MG/ML, 1ML ONE (12:45)
[2017-07-07] MEDS ORDERED: morphine SULFATE 10 MG/ML, 1ML ONE (12:45)
[2017-07-07] MEDS ORDERED: LORazepam 2 MG/ML, 1ML IV PRN (13:30)
[2017-07-07] MEDS ORDERED: ATROPINE OPHTH SOLN 1%, 2ML PO PRN (13:30)
[2017-07-07] MEDS ORDERED: HYDROmorphone 10 MG in SODIUM CHLORIDE 0.9% 245 ML IV PRN (13:30)
[2017-07-07] MEDS ORDERED: morphine SULFATE 10 MG/ML, 1ML IVPush ONE (14:00)
[2017-07-07] MEDS ORDERED: methylPREDNISolone SOD SUCC 125 MG/2 ML IVPush SCH (16:00)
== END 2017-07-07 15:29 | disposition expired | DRG 871 ==
LOC: EDBD → MERGE 13:39 → ED 14:11 → EDIP 14:12 → ED 14:19 → ICU 18:16
PROVIDERS: ADMIT Hospitalist; ATTEND Hospitalist
PROC: 02HV33Z Insertion of Infusion Device into Superior Vena Cava, Percutaneous Approach (ICD-10-PCS; principal; 2017-07-06)
PROC: 5A1945Z Respiratory Ventilation, 24-96 Consecutive Hours (ICD-10-PCS; 2017-07-06)
PROC: 0BH17EZ Insertion of Endotracheal Airway into Trachea, Via Natural or Artificial Opening (ICD-10-PCS; 2017-07-06)
DX: A41.9 Sepsis, unspecified organism (principal); E11.11 Type 2 diabetes mellitus with ketoacidosis with coma; J96.21 Acute and chronic respiratory failure with hypoxia; E84.0 Cystic fibrosis with pulmonary manifestations; E87.3 Alkalosis; N17.9 Acute kidney failure, unspecified; K86.89 Other specified diseases of pancreas; E87.0 Hyperosmolality and hypernatremia; T79.7XXA Traumatic subcutaneous emphysema, initial encounter; Z51.5 Encounter for palliative care; Z66 Do not resuscitate; D47.3 Essential (hemorrhagic) thrombocythemia; D64.9 Anemia, unspecified; E78.1 Pure hyperglyceridemia; E87.5 Hyperkalemia; G89.4 Chronic pain syndrome; J45.909 Unspecified asthma, uncomplicated; J47.9 Bronchiectasis, uncomplicated; K21.9 Gastro-esophageal reflux disease without esophagitis; R65.20 Severe sepsis without septic shock; Z16.24 Resistance to multiple antibiotics; Z79.4 Long term (current) use of insulin; Z91.19 Patient's noncompliance with other medical treatment and regimen; Z93.1 Gastrostomy status
CPT/HCPCS: 31500; 36415; 36556; 36600; 71010; 80048; 80053; 80200; 82010; 82803; 82947; 82962; 83036; 83605; 83735; 84478; 84484; 85025; 87040; 87070; 87077; 87147; 87186; 87205; 93005; 94002; 94003; 94640; 96374; 96375; 99292; J1170; J1644; J1815; J2185; J2250; J2704; J3490; J7070; J7620; J7682; J2060; J2270; J2930; J3260; J7030; J7040; J7050; S0028